=== PATIENT | male | born 1970 | race Caucasian/White ===

== ENCOUNTER 2021-05-15 08:03 | Outpatient (REF) | payer MEDICARE, SELFPAY ==
[2021-05-15 12:07] LABS: Alanine Aminotransferase 20 U/L (0-40); Albumin Level 4.4 g/dL (3.5-5.0); Alkaline Phosphatase 62 U/L (39-117); Anion Gap 14 (12-20); Aspartate Amino Transferase 22 U/L (5-37); Bilirubin Total 1.7 mg/dL (0.0-1.0); Blood Urea Nitrogen 18 mg/dL (9-16); Calcium 10.1 mg/dL (8.4-10.2); Carbon Dioxide 30 mmol/L (22-29); Chloride 103 mmol/L (96-108); Cholesterol 254 mg/dL; Estimated Glomerular Filt Rate > 60; Glucose Fasting 70 mg/dL (60-99); HDL Cholesterol 58 mg/dL; LDL Cholesterol Calculated 176 mg/dl; Potassium 3.6 mmol/L (3.3-5.1); Sodium 143 mmol/L (135-145); Triglycerides 104 mg/dL
[2021-05-15 12:29] LABS: Vitamin D 25-OH Total 13.8 ng/mL (>30)
== END 2021-05-15 08:04 | disposition home or self-care (01) ==
LOC: HO.HMGCLDS 08:03
PROVIDERS: PCP Internal Medicine; Visit Provider Internal Medicine
DX: Z00.01 Encounter for general adult medical examination with abnormal findings (principal); E78.5 Hyperlipidemia, unspecified; E55.9 Vitamin D deficiency, unspecified
CPT/HCPCS: 36415; 80053; 80061; 82306

== ENCOUNTER 2021-05-16 08:13 | Outpatient (REF) | payer MEDICARE, OTHER, SELFPAY ==
[2021-05-22 08:31] LABS: Levetiracetam Keppra 14.9 mcg/mL (12.0-46.0)
== END 2021-05-16 08:14 | disposition home or self-care (01) ==
LOC: HO.HMGCLDS 08:13
PROVIDERS: PCP Internal Medicine; Visit Provider Internal Medicine
DX: G40.909 Epilepsy, unspecified, not intractable, without status epilepticus (principal); Z79.899 Other long term (current) drug therapy
CPT/HCPCS: 36415; 80177

== ENCOUNTER 2022-02-26 06:08 | Outpatient (REF) | payer MEDICARE, OTHER, SELFPAY ==
[2022-02-26 12:27] LABS: Vitamin D 25-OH Total 30.7 ng/mL (>30)
[2022-02-26 12:29] LABS: Alanine Aminotransferase 18 U/L (0-40); Albumin Level 4.5 g/dL (3.5-5.0); Alkaline Phosphatase 68 U/L (39-117); Aspartate Amino Transferase 19 U/L (5-37); Bilirubin Direct 0.5 mg/dL (0.0-0.5); Bilirubin Total 1.7 mg/dL (0.0-1.0); Cholesterol 237 mg/dL; HDL Cholesterol 55 mg/dL; LDL Cholesterol Calculated 154 mg/dl; Total Protein 6.8 g/dL (6.5-8.0); Triglycerides 141 mg/dL
== END 2022-02-26 06:09 | disposition home or self-care (01) ==
LOC: HO.HMGCLDS 06:08
PROVIDERS: PCP Internal Medicine; Visit Provider Internal Medicine
DX: E55.9 Vitamin D deficiency, unspecified (principal); E78.5 Hyperlipidemia, unspecified; R17 Unspecified jaundice
CPT/HCPCS: 36415; 80061; 80076; 82306

== ENCOUNTER 2022-05-24 07:08 | Outpatient (REF) | payer MEDICARE, OTHER, SELFPAY ==
[2022-05-24 11:56] LABS: Alanine Aminotransferase 19 U/L (0-40); Albumin Level 4.1 g/dL (3.5-5.0); Alkaline Phosphatase 82 U/L (39-117); Anion Gap 11 (12-20); Aspartate Amino Transferase 17 U/L (5-37); Blood Urea Nitrogen 14 mg/dL (9-16); Calcium 9.3 mg/dL (8.4-10.2); Carbon Dioxide 32 mmol/L (22-29); Chloride 103 mmol/L (96-108); Estimated Glomerular Filt Rate > 60; Glucose Random 71 mg/dL (60-115); Lactate Dehydrogenase 184 U/L (118-273); Potassium 3.8 mmol/L (3.3-5.1); Sodium 142 mmol/L (135-145); Total Protein 6.4 g/dL (6.5-8.0)
[2022-05-28 16:19] LABS: Levetiracetam Keppra 18.2 mcg/mL (6.0-46.0)
== END 2022-05-24 07:09 | disposition home or self-care (01) ==
LOC: HO.HMGCLDS 07:08
PROVIDERS: Internal Medicine; Absent Provider Psychiatry & Neurology Neurology; PCP Internal Medicine; Visit Provider Nurse Practitioner Family
DX: C83.30 Diffuse large B-cell lymphoma, unspecified site (principal); G40.909 Epilepsy, unspecified, not intractable, without status epilepticus; Z79.899 Other long term (current) drug therapy
CPT/HCPCS: 36415; 80053; 80177; 83615

== ENCOUNTER 2023-03-14 08:22 | Outpatient (REF) | payer MEDICARE, OTHER, SELFPAY ==
[2023-03-14 11:25] LABS: MANUAL DIFF FLAG NO
[2023-03-14 12:03] LABS: Basophils Percent Auto 0.2 % (0-2); Eosinophils Absolute Auto 0.1 X10*3/uL (0.0-0.4); Eosinophils Percent Auto 1.7 % (0-4); Hematocrit 52.4 % (42.0-52.0); Hemoglobin 17.5 g/dl (14.0-18.0); Imm Gran Abs Auto 0.03 X10*3/uL (0.00-0.03); Imm Gran Pct Auto 0.4 % (0.0-0.4); Lymphocytes Absolute Auto 2.4 X10*3/uL (1.2-4.9); Mean Corpuscular HGB Conc 33.4 g/dl (31.0-36.0); Mean Corpuscular Hemoglobin 30.2 pg (27.0-33.0); Mean Corpuscular Volume 90.5 fL (80.0-98.0); Monocytes Absolute Auto 0.9 X10*3/uL (0.1-1.2); Monocytes Percent Auto 11.4 % (2-11); Neutrophils Absolute Auto 4.7 x10*3/uL (2.0-8.3); Neutrophils Percent Auto 57.3 % (45-73); Platelet Count 249 X10*3/uL (160-400); Red Blood Count 5.79 X10*6/uL (4.60-5.80); White Blood Count 8.2 X10*3/uL (4.8-10.8)
[2023-03-14 12:12] LABS: Alanine Aminotransferase 18 U/L (0-40); Albumin Level 4.3 g/dL (3.5-5.0); Alkaline Phosphatase 71 U/L (39-117); Anion Gap 15 (12-20); Aspartate Amino Transferase 19 U/L (5-37); Bilirubin Total 1.5 mg/dL (0.0-1.0); Blood Urea Nitrogen 10 mg/dL (9-16); Carbon Dioxide 28 mmol/L (22-29); Chloride 102 mmol/L (96-108); Cholesterol 253 mg/dL (<200); Estimated Glomerular Filt Rate > 60; Glucose Fasting 77 mg/dL (60-99); HDL Cholesterol 50 mg/dL (>40); LDL Cholesterol Calculated 162 mg/dL (<100); Potassium 3.6 mmol/L (3.3-5.1); Sodium 141 mmol/L (135-145); Total Protein 6.9 g/dL (6.5-8.0); Triglycerides 208 mg/dL (<150)
[2023-03-14 12:14] LABS: Vitamin D 25-OH Total 74.5 ng/mL (>30)
[2023-03-14 12:25] LABS: PSA,Total (Free>4and<10) 0.69 ng/mL (0.00-4.00)
== END 2023-03-14 08:23 | disposition home or self-care (01) ==
LOC: HO.HMGCLDS 08:22
PROVIDERS: PCP Internal Medicine; Visit Provider Internal Medicine
DX: G40.909 Epilepsy, unspecified, not intractable, without status epilepticus (principal); E55.9 Vitamin D deficiency, unspecified; E78.5 Hyperlipidemia, unspecified; Z85.72 Personal history of non-Hodgkin lymphomas; Z13.220 Encounter for screening for lipoid disorders; Z12.5 Encounter for screening for malignant neoplasm of prostate
CPT/HCPCS: 36415; 80053; 80061; 82306; 84153; 85025

== ENCOUNTER 2023-04-25 12:36 | Outpatient (AMB) | payer MEDICARE, MEDICAID, SELFPAY ==
--- NOTE | 2023-04-25 13:11 | A.OFFPC_ITS ---
Vital Signs 04/25/23 13:12 Height 5 ft 9 in Weight 205 lb BMI 30.3 BP 106/64 Blood Pressure Location Lt brachial Position Sitting Pulse 76 Pulse Source Pulse Oximeter Pulse Oximetry (%) 96 Oxygen Delivery Method Room Air Intake Visit Reasons: request referral for a 2nd opin. neuro Intake Note: Pt is here today for a follow up visit to discuss referral to Neuro 2nd opinion. Allergies silver Allergy (Unknown, Verified 04/25/23 13:20) Rash Penicillins [PENICILLINS] Adverse Reaction (Mild, Verified 04/25/23 13:20) DIARRHEA Medication List - Last Reconciled 04/25/23 by Tram Chi MD famotidine 40 mg PO DAILY levetiracetam 750 mg PO BID psyllium husk 0.4 grams PO DAILY Tobacco use date assessed: 04/25/23 Dental Screening Dental Screen Date: 04/25/23 Did you have a dental visit in the last 12 months?: Yes Did you have a dental problem in the last 6 months where you did not have access to dental care?: No Was dental information given to patient?: Patient has dentist HPI request referral for a 2nd opin. 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 Patient would like to stop his levetiracetam but states that his current neurologist is advising to for him to continue on it. [facility] Medical History (Updated 07/11/23 @ 09:11 by Tram Chi MD) Right hip pain History of diffuse large B-cell lymphoma Hearing impairment Seizure disorder Vitamin D deficiency Dyslipidemia B-cell lymphoma Onychomycosis of toenail Surgical History Hx of colonoscopy History of surgery Family History Father Skin cancer Mother Rheumatoid arthritis Dementia Mental health disorder Paternal Grandmother Dementia Paternal Grandfather Heart disease Brother No problems noted. Social History Housing: House Alcohol intake: never Patient Tobacco Use Status: Never used Tobacco e-Cigarette/Vaping Use: Never Used service: No Current occupational status: employed Cognitive needs: No Hearing needs: No Vision needs: Yes Questionnaire PHQ-9 Over the last 2 weeks, how often have you been bothered by any of the following problems? Depression Screening Interpretation: Negative Depression Screening Done: Yes Source: Developed by Drs. Adam Amaral, Lauren Melvin, Cameron Hein and colleagues, with an educational avila from [employer]. Thrive Questionnaire Date Thrive assessed: 05/31/22 AUDIT C Alcohol Use Questionnaire (AUDIT-C) 1. How often do you have a drink containing alcohol?: Never 3. How often do you have six or more drinks on one occasion?: Never Total Score: 0 LINDSEY-7 AMB Questionnaire LINDSEY-7 Date LINDSEY - 7 assessed: 05/31/22 Source: Developed by Drs. Adam Amaral, Lauren Melvin, Cameron Hein and colleagues, with an educational avila from [employer]. Review of Systems Const Denies body aches, Denies fever(s) and Denies headache(s) ENT Denies dizziness, Denies headache(s) and Denies nasal congestion Card Denies chest pain, Denies lightheadedness and Denies dyspnea Resp Denies chest congestion, Denies cough and Denies dyspnea GI Denies abdominal pain and Denies change in bowel habits Reports no additional complaints Musc Denies back pain, Denies myalgias, Denies arthralgias, Denies joint swelling, Denies muscle cramps and Denies muscle weakness Neuro Denies dizziness, Denies headache(s) and Denies convulsions Psych Reports no additional complaints Endo Reports no additional complaints Physical exam (Primary Care) Vital Signs: Last Vital Signs Pulse 76 04/25/23 13:12 BP 106/64 04/25/23 13:12 Pulse Ox 96 04/25/23 13:12 Oxygen Delivery Method Room Air 04/25/23 13:12 BMI result Body Mass Index 30.3 Tobacco/Smoking Status: Tobacco use Status Tobacco use date assessed 04/25/23 04/25/23 13:15 Patient Tobacco Use Status Never used Tobacco 04/25/23 13:15 e-Cigarette/Vaping Use Never Used 04/25/23 13:15 Depression Screening Interpretation: Negative Thrive Assessment: Date of Thrive Assessment Date Thrive assessed 05/31/22 04/25/23 13:15 Const Other: Alert oriented x 3, no acute cardiorespiratory distress noted, ambulatory normal gait General: comfortable, no acute distress and alert Orientation/consciousness: patient oriented x3 HENMA Other: Impacted cerumen noted in right ear canal, slight dry flakes noted in left ear canal with tympanic membrane intact Ears: external ears normal General nose exam: Normal external nose present Mouth: Normal oral and palatal mucosa present, oropharynx normal and moist mucous membranes Eyes General: appearance normal, both eyes and all related structures Neck Neck: Yes full ROM, Yes no lymphadenopathy and Yes supple Resp Effort & Inspection: normal respiratory effort and able to speak in complete sentences Auscultation: clear to auscultation bilaterally Cardio Rate: regular rate Rhythm: regular rhythm Heart sounds: S1 normal heart sound present and S2 normal heart sound present GI Palpation (GI): Soft to palpation, nontender and no masses Auscultation: normal bowel sounds Back/Spine/Pelvis Back: No back tenderness Skin General skin exam: no rashes or lesions noted Neuro General: patient oriented x3, gait normal, tone normal, moves all extremities, Normal light touch and pain sensation and no focal motor deficits Cranial nerves: Yes CN's II-XII intact bilaterally Cognition (Neuro): normal cognition Extrem General: Yes full ROM, Yes no joint enlargement, Yes no clubbing, cyanosis or edema and Yes no calf tenderness Psych Appearance: grossly normal and well kempt Mental Status: mental status grossly normal Speech and movement: Normal speech and movement present Affect: normal affect Attitude: cooperative Thought process: Normal thought process present Thought content: Normal thought content present Assessment and Plan Assessment & Plan (1) Seizure disorder: Code(s): G40.909 - Epilepsy, unspecified, not intractable, without status epilepticus Plan: Currently on levetiracetam, requesting a referral to another neurologist for 2nd opinion. (2) Dyslipidemia: Code(s): E78.5 - Hyperlipidemia, unspecified Plan: Ordered fasting lipid panel and liver enzyme (3) History of diffuse large B-cell lymphoma: Code(s): Z85.72 - Personal history of non-Hodgkin lymphomas Plan: No recurrences. Orders: Orders Complete Blood Count Auto Diff 04/25/23 G40.909 - Epilepsy, unspecified, not intractable, without status epilepticus, E78.5 - Hyperlipidemia, unspecified, Z85.72 - Personal history of non-Hodgkin lymphomas, E55.9 - Vitamin D deficiency, unspecified Alanine Aminotransferase 04/25/23 G40.909 - Epilepsy, unspecified, not intractable, without status epilepticus, E78.5 - Hyperlipidemia, unspecified, Z85.72 - Personal history of non-Hodgkin lymphomas, E55.9 - Vitamin D deficiency, unspecified Glucose Fasting 04/25/23 G40.909 - Epilepsy, unspecified, not intractable, without status epilepticus, E78.5 - Hyperlipidemia, unspecified, Z85.72 - Personal history of non-Hodgkin lymphomas, E55.9 - Vitamin D deficiency, unspecified Lipid Panel 04/25/23 G40.909 - Epilepsy, unspecified, not intractable, without status epilepticus, E78.5 - Hyperlipidemia, unspecified, Z85.72 - Personal history of non-Hodgkin lymphomas, E55.9 - Vitamin D deficiency, unspecified Aspartate Amino Transferase 04/25/23 G40.909 - Epilepsy, unspecified, not intractable, without status epilepticus, E78.5 - Hyperlipidemia, unspecified, Z85.72 - Personal history of non-Hodgkin lymphomas, E55.9 - Vitamin D deficiency, unspecified Coding Level of Care Code Est Pt Level 4 (07077) Diagnoses Seizure disorder G40.909 Dyslipidemia E78.5 History of diffuse large B-cell lymphoma Z85.72
[2023-04-25 13:12] VITALS: BP 106/64; PULSE 76; O2SAT 96; BMI 30.3
== END 2023-04-25 14:12 | disposition home or self-care (01) ==
PROVIDERS: PCP Internal Medicine; Visit Provider Internal Medicine
DX: G40.909 Epilepsy, unspecified, not intractable, without status epilepticus (principal); E78.5 Hyperlipidemia, unspecified; Z85.72 Personal history of non-Hodgkin lymphomas
CPT/HCPCS: 99214

== ENCOUNTER 2023-07-10 06:10 | Outpatient (REF) | payer MEDICARE, OTHER, SELFPAY ==
[2023-07-10 11:31] LABS: MANUAL DIFF FLAG NO
[2023-07-10 11:43] LABS: Basophils Percent Auto 0.6 % (0-2); Eosinophils Absolute Auto 0.1 X10*3/uL (0.0-0.4); Eosinophils Percent Auto 2.1 % (0-4); Hematocrit 53.3 % (42.0-52.0); Hemoglobin 17.7 g/dl (14.0-18.0); Imm Gran Abs Auto 0.02 X10*3/uL (0.00-0.03); Imm Gran Pct Auto 0.3 % (0.0-0.4); Lymphocytes Absolute Auto 3.2 X10*3/uL (1.2-4.9); Lymphocytes Percent Auto 47.4 % (20-40); Mean Corpuscular HGB Conc 33.2 g/dl (31.0-36.0); Mean Corpuscular Hemoglobin 30.2 pg (27.0-33.0); Monocytes Absolute Auto 0.8 X10*3/uL (0.1-1.2); Monocytes Percent Auto 11.3 % (2-11); Neutrophils Absolute Auto 2.6 x10*3/uL (2.0-8.3); Neutrophils Percent Auto 38.3 % (45-73); Platelet Count 260 X10*3/uL (160-400); Red Blood Count 5.86 X10*6/uL (4.60-5.80); Red Cell Distribution Width 13.2 % (11.0-16.0); White Blood Count 6.7 X10*3/uL (4.8-10.8)
[2023-07-10 11:52] LABS: Alanine Aminotransferase 24 U/L (0-40); Aspartate Amino Transferase 20 U/L (5-37); Cholesterol 262 mg/dL (<200); Glucose Fasting 79 mg/dL (60-99); HDL Cholesterol 57 mg/dL (>40); LDL Cholesterol Calculated 176 mg/dL (<100); Triglycerides 148 mg/dL (<150)
== END 2023-07-10 06:11 | disposition home or self-care (01) ==
LOC: HO.HMGCLDS 06:10
PROVIDERS: PCP Internal Medicine; Visit Provider Internal Medicine
DX: G40.909 Epilepsy, unspecified, not intractable, without status epilepticus (principal); E78.5 Hyperlipidemia, unspecified; E55.9 Vitamin D deficiency, unspecified; Z85.72 Personal history of non-Hodgkin lymphomas
CPT/HCPCS: 36415; 80061; 82947; 84450; 84460; 85025

== ENCOUNTER 2023-07-11 07:49 | Outpatient (AMB) | payer MEDICARE, MEDICAID, SELFPAY ==
--- NOTE | 2023-07-11 08:07 | A.OFFVIS_ITS ---
Intake Vital Signs 07/11/23 08:09 Height 5 ft 9 in Weight 210 lb BMI 31.0 BP 120/82 Blood Pressure Location Rt brachial Position Sitting Pulse 62 Pulse Source Pulse Oximeter Pulse Oximetry (%) 93 Oxygen Delivery Method Room Air Intake Visit Reasons: AWV Intake Note: Pt is here today for his AWV: Last colonoscopy 03/17/18 Allergies silver Allergy (Unknown, Verified 04/25/23 13:20) Rash Penicillins [PENICILLINS] Adverse Reaction (Mild, Verified 04/25/23 13:20) DIARRHEA Medication List - Last Reconciled 07/11/23 by Tram Chi MD famotidine 40 mg PO DAILY levetiracetam 750 mg PO BID psyllium husk 0.4 grams PO DAILY HPI AWV HPI Details SWV ? 52 year old male with history of seizure disorder, dyslipidemia, diffuse large B-cell lymphoma, hearing impairment, and onychomycosis of toenails, presents to today for his subsequent? Annual Wellness Visit.? He had a screening colonoscopy done by Dr. Ralph in 03/17/2018 which came back with normal findings. He is also up-to-date with his fasting blood sugar check and fasting lipids , the latter of which came back with elevated LDL cholesterol. He is up-to-date with his yearly flu shot, COVID vaccinations, rpneumonia vaccination and Tdap, but needs his shingles vaccination .? Medical / Social History Reviewed? Past Medical History ?Yes . ? Hughes of Care / Care Team list updated ?Yes . ? Surgical/Hospitalization History ?Yes . ? Current Medications (including OTC and supplements) ?Yes . ? Family History ?Yes . ? Tobacco Control form ?Yes . ? AUDIT-C (Alcohol use) form ?Yes . ? Illicit drug use in Social History ?Yes . ? Current diagnosis of depression? ?No ? Appropriate PHQ2/PHQ9 completed ?Yes . ? Data entered by ?Merchandising Team Lead and reviewed by provider ? Fall Risk ? Fall History? Have you had any falls with injury in the past year? ?No . ? Have you had two or more falls in the past year? ?No . ? Fall Risk Assessment: ?No falls in the past year . ? HRA filled out by the patient, reviewed by Provider and scanned. ? IPPE/AWV ? Balance? Romberg ?Yes . ? Tandem walk ?Yes . ? Walk and Turn ?Yes . ? Rise from sit to stand ?Yes . ?Vision? Corrective lens ?Yes ? Vision screen ?Hearing? Whisper test ?pass . ?Written Plan?Completed. See Patient Documents.? HPI Comments History of Present Illness Details 52-year-old male with history of diffuse B-cell lymphoma status post chemotherapy and stem cell mobilization, history of seizure disorder which started when he was diagnosed with lymphoma, has not had any seizure episodes since then, currently still on levetiracetam followed by Dr. Pavon at [facility]. He is seeking a 2nd opinion with [facility] Neuro[facility]On[facility] Department has an appointment next month to see if we can stop his seizure medication. He is still being seen by Dr. Lynne , his oncologist for follow-up yearly. Has been having intermittent episodes of pain in his right hip joint, usually with walking long distances, no history of any trauma, would like a referral for physical therapy . Recent labs showed marked elevation in his LDL cholesterol higher than last check. Patient denies any regular exercise. He would admits to having a very bad diet consisting mainly of less Jennifer, meat pies, pizza [facility] Medical History (Updated 07/11/23 @ 09:11 by Tram Chi MD) Right hip pain History of diffuse large B-cell lymphoma Hearing impairment Seizure disorder Vitamin D deficiency Dyslipidemia B-cell lymphoma Onychomycosis of toenail Surgical History Hx of colonoscopy History of surgery Family History Father Skin cancer Mother Rheumatoid arthritis Dementia Mental health disorder Paternal Grandmother Dementia Paternal Grandfather Heart disease Brother No problems noted. Social History Housing: House Alcohol intake: never Patient Tobacco Use Status: Never used Tobacco e-Cigarette/Vaping Use: Never Used service: No Current occupational status: employed Cognitive needs: No Hearing needs: No Vision needs: Yes Questionnaire Medicare Wellness Checkup What gender do you identify with?: male During the past 4 weeks, how much have you been bothered by emotional problems such as feeling anxious, depressed, irritable, sad or downhearted, and blue?: slightly During the past 4 weeks, has your physical & emotional health limited your social activities with family, friends, neighbors, or groups?: not at all During the past 4 weeks, how much bodily pain have you generally had?: very mild pain During the past 4 weeks, was someone available to help you if you needed & wanted help?: yes, some During the past 4 weeks, what was the hardest physical activity you could do for at least 2 minutes?: very heavy Can you get to places out of walking distance without help? (For eg., can you travel alone on buses, taxis or drive your car?): Yes Can you go shopping for groceries or clothes without someone's help?: Yes Can you prepare your own meals?: Yes Can you do your housework without help?: Yes Because of any health problems, do you need the help of another person with your personal care needs such as eating, bathing, dressing or getting around the house?: No During the past 4 weeks, how would you rate your health in general?: very good During the past 4 weeks how have things been going for you?: pretty well Are you having difficulties driving your car?: no Do you always fasten your seat belt when you are in a car?: yes, usually During past 4 weeks, have you been bothered by the following: never: Falling or dizzy when standing up, Trouble eating well?, Problems using the telephone? and Tiredness or fatigue?, seldom: Teeth or denture problems? and often: Sexual problems? Have you fallen 2 or more times in the past year?: No Are you a smoker?: no During the past 4 weeks, how many drinks of wine, beer, or other alcoholic beverages did you have?: no alcohol at all Do you exercise for about 20 minutes 3 or more times a week?: yes, most of the time Have you been given information to help with the following?: no: Hazards in your house that might hurt you? and no: Keeping track of your medications? How often do you have trouble taking medicines the way you have been told to take them?: sometimes I take medicine as prescribed How confident are you that you can control & manage most of your health problems?: somewhat confident What is your race?: White Mini Mental State Exam (MMSE) Orientation What is the (year) (season) (date) (day) (month)?: year (2023), season (Winter), date (07/11/2023), day (Friday) and month (June) Where are we (state) (county) (town or city) (hospital) (floor)?: state ([place]), county ([place]), town or city ([place]) and hospital/clinic ([facility]) Score Score: 9 Activity of Daily Living Bathing - sponge bath, tub bath or shower: receives no assistance (gets in/out by self, if usual bathing means Dressing - getting clothes from closets & drawers, including inner/outer garments & fasteners.: gets clothes & gets completely dressed without help Toileting - going to the 'toilet room' for urine/bowel elimination & cleaning self/arranging clothes: goes to toilet room, cleans self, arranges clothes without help Transfer: moves in & out of bed and chair without help (may use support object) Continence: controls urination/bowel movements completely by self Feeding: feeds self without help Total Score: 0 Information obtained from: patient Using telephone: independent Traveling: independent Shopping: independent Preparing meals: independent Housework: independent Taking medicine: independent Managing money: independent PHQ-9 Over the last 2 weeks, how often have you been bothered by any of the following problems? 1. Little interest or pleasure in doing things: not at all 2. Feeling down, depressed, or hopeless: not at all 3. Trouble falling or staying asleep, or sleeping too much: several days 4. Feeling tired or having little energy: not at all 5. Poor appetite or overeating: several days 6. Feeling bad about yourself - or that you are a failure or have let yourself or your family down: not at all 7. Trouble concentrating on things, such as reading the newspaper or watching television: not at all 8. Moving or speaking so slowly that other people could have noticed. Or the opposite - being so fidgety or restless that you have been moving around a lot more than usual: not at all 9. Thoughts that you would be better off or of hurting yourself in some way: not at all Total score: 2 Source: Developed by Drs. Adam Amaral, Lauren Melvin, Cameron Hein and colleagues, with an educational avila from [employer]. Thrive Questionnaire Date Thrive assessed: 07/11/23 I am a: Patient What is your living situation today?: I have a steady place to live Within the past 12 months, did the food you bought not last and you didn't have the money to get more?: Never true Within the past 12 months, did you worry whether your food would run out before you got money to buy more?: Never true Do you have trouble paying for medicines?: No Do you have trouble getting transportation to medical appointments?: No Do you have trouble paying your heating and electricity bill?: No Do you have trouble taking care of your child, family member or friend?: No Do you have trouble with day-to-day activities such as bathing, preparing meals, shopping, managing finances, etc.?: No Are you currently unemployed and looking for a job?: No Are you interested in more education?: No Please select the resources that you would like help with: None THRIVE Score: 0 LINDSEY-7 AMB Questionnaire LINDSEY-7 Date LINDSEY - 7 assessed: 07/11/23 Feeling nervous, anxious, or on edge: 1 = Several days Not being able to stop or control worryin = Not at all Worrying too much about different things: 1 = Several days Trouble relaxin = Not at all Being so restless that it is hard to sit still: 0 = Not at all Becoming easily annoyed or irritable: 0 = Not at all Feeling afraid as if something awful might happen: 0 = Not at all Total LINDSEY-7 score (0-4 normal; 5-9 mild; 10-14 moderate; 15-21 severe): 2 Source: Developed by Drs. Adam Amaral, Lauren Melvin, Cameron Hein and colleagues, with an educational avila from [employer]. Review of Systems Const All systems reviewed & are unremarkable except as noted in HPI and below Physical Exam Vital Signs: Last Vital Signs Pulse 62 07/11/23 08:09 BP 120/82 07/11/23 08:09 Pulse Ox 93 07/11/23 08:09 Oxygen Delivery Method Room Air 07/11/23 08:09 BMI result Body Mass Index 31.0 Const General: cooperative, comfortable and no acute distress Nutritional Appearance: obese Orientation/consciousness: patient oriented x3 HEENT Ears: external ears normal, TM's normal bilaterally and EAC's normal General nose exam: Normal external nose present and Normal nasal mucous membranes and turbinates present Mouth: Normal oral and palatal mucosa present, oropharynx normal and moist mucous membranes Eyes General: appearance normal, both eyes and all related structures Neck Neck: Yes full ROM, Yes no lymphadenopathy and Yes supple Resp Effort & Inspection: normal respiratory effort and able to speak in complete sentences Auscultation: clear to auscultation bilaterally Cardio Rate: regular rate Rhythm: regular rhythm Heart sounds: S1 normal heart sound present and S2 normal heart sound present Neuro General: patient oriented x3, gait normal, tone normal, moves all extremities, Normal light touch and pain sensation and no focal motor deficits Cognition (Neuro): normal cognition Gait exam (Neuro): Normal gait present Motor exam (neuro): 5/5 motor strength present throughout Extrem General: Yes full ROM, Yes no joint enlargement, Yes no clubbing, cyanosis or edema, Yes no pedal edema, Yes no calf tenderness and Yes normal gait Results Reviewed Results Reviewed: ENTERED: 07/10/23 [facility] DR: ORDERED: CBC Auto Diff Test Result Flag Reference WBC 6.7 4.8-10.8 X10*3/uL RBC 5.86 H 4.60-5.80 X10*6/uL HGB 17.7 14.0-18.0 g/dl HCT 53.3 H 42.0-52.0 % MCV 91.0 80.0-98.0 fL MCH 30.2 27.0-33.0 pg MCHC 33.2 31.0-36.0 g/dl RDW 13.2 11.0-16.0 % PLT 260 160-400 X10*3/uL MPV 10.0 9.4-12.4 fL Neut Pct Auto 38.3 L 45-73 % ImGran Pct Auto 0.3 0.0-0.4 % Lymp Pct Auto 47.4 H 20-40 % [place] Pct Auto 11.3 H 2-11 % Eos Pct Auto 2.1 0-4 % Baso Pct Auto 0.6 0-2 % NRBC Pct Auto 0.0 0.0-0.2 /100WBC ANC Neut Abs # 2.6 2.0-8.3 x10*3/uL ImGran Abs Auto 0.02 0.00-0.03 X10*3/uL Lymph Abs Auto 3.2 1.2-4.9 X10*3/uL [place] Abs Auto 0.8 0.1-1.2 X10*3/uL Eos Abs Auto 0.1 0.0-0.4 X10*3/uL Baso Abs Auto 0.0 0.0-0.2 X10*3/uL NRBC Abs Auto 0.000 0.0-0.012 X10*3/uL RUN: 07/11/23 0815 PAGE 1 [facility] [address] [place] [id number] Offset Label Rewinder: Chris Benitez M.D. Specimen Inquiry Name: Rony Guidry Age/Sex: 52/M : 1970 Unit#: [id number] Attend Dr: Tram Chi MD Re07/10/23 Status: DEP [facility]F [facility]: SPEC : [id number] BRISEYDA: 07/10/23 STATUS: COMP REQ : [id number] RECD: 07/10/23-[address]: Tram Chi MD COMP: 07/10/23 ENTERED: 07/10/[address]: ORDERED: Glu Fasting, AST, ALT, Lipid Panel Test Result Flag Reference FBS 79 60-99 mg/dL AST (GOT) 20 5-37 U/L ALT (GPT) 24 0-40 U/L Triglyceride 148 <150 mg/dL Desirable Triglyceride: less than 150 mg/dL Borderline High Triglyceride 150-199 mg/dL High Triglyceride: 200-499 mg/dL Very High Triglyceride: greater than or equal to 5OO mg/dL Cholesterol 262 H <200 mg/dL Desirable Cholesterol: less than 200 mg/dL Borderline High Cholesterol: 200-239 mg/dL High Cholesterol: greater than 239 mg/dL LDL Calculated 176 H <100 mg/dL Desirable LDL: less than 100 mg/dL Near Optimal/Above Optimal LDL: 110-129 mg/dL Borderline High LDL: 130-159 mg/dL High LDL: 160-189 mg/dL Very High LDL: greater than or equal to 190 mg/dL HDL 57 >40 mg/dL Desirable HDL: greater than 40 mg/dL Note: This HDL assay may give artificially low results in patients with liver disease. Assessment & Plan Assessment & Plan (1) Dyslipidemia: Code(s): E78.5 - Hyperlipidemia, unspecified Plan: Reinforced importance of following a low-cholesterol diet and getting regular exercise at least 15 minutes of cardio daily. Referred to our dietitian, for dietary guidance. Follow-up in 6 months for recheck on his lipids (2) Seizure disorder: Code(s): G40.909 - Epilepsy, unspecified, not intractable, without status epilepticus Plan: Currently being seen by Dr. Rony Pavon at [facility], and has an appointment with [facility]Oncology next month for 2nd opinion, wants to see if still needs to be taking levetiracetam, last seizure episode was several years ago when he had his initial cancer diagnosed (3) Encounter for initial annual wellness visit (AWV) in Medicare patient: Code(s): Z00.00 - Encounter for general adult medical examination without abnormal findings Plan: Medical wellness checklist discussed with patient, reviewed and updated. Copy given. (4) History of diffuse large B-cell lymphoma: Comment: Status post R-HiDAC chemotherapy followed by subsequent high-dose G-CSF autologous stem cell mobilization in 2016 Code(s): Z85.72 - Personal history of non-Hodgkin lymphomas Plan: Currently followed yearly by at [facility] (5) Right hip pain: Code(s): M25.551 - Pain in right hip Plan: Referred for physical therapy Orders: Orders PT Evaluation and Treatment Today M25.551 - Pain in right hip Aspartate Amino Transferase 11/24/23 E78.5 - Hyperlipidemia, unspecified Lipid Panel 11/24/23 E78.5 - Hyperlipidemia, unspecified Alanine Aminotransferase 11/24/23 E78.5 - Hyperlipidemia, unspecified Quality Reporting (2019) Depression/Bipolar (159/160/161/177) PHQ-9: Total score: 2 Coding Level of Care Code Medicare Subsequent (G0439) Est Pt Level 3 (95968) Diagnoses Dyslipidemia E78.5 Seizure disorder G40.909 Encounter for initial annual wellness visit (AWV) in Medicare patient Z00.00 History of diffuse large B-cell lymphoma Z85.72 Right hip pain M25.551 CPT Codes Advance Care Planning - Time spent: 1-15 minutes, on File ([id number]) Advance Care Planning Date of discussion: 07/11/23 Who was present: Patient Forms completed: Health Care Proxy and MOLST Time spent: 1-15 minutes, on File Actual minutes spent: 15
[2023-07-11 08:09] VITALS: BP 120/82; PULSE 62; O2SAT 93; BMI 31.0
== END 2023-07-11 09:20 | disposition home or self-care (01) ==
PROVIDERS: PCP Internal Medicine; Visit Provider Internal Medicine
DX: Z00.00 Encounter for general adult medical examination without abnormal findings (principal); E78.5 Hyperlipidemia, unspecified; G40.909 Epilepsy, unspecified, not intractable, without status epilepticus; M25.551 Pain in right hip; Z85.72 Personal history of non-Hodgkin lymphomas
CPT/HCPCS: 1123F; 99213; G0439

== ENCOUNTER 2023-09-16 14:00 | Outpatient (RCR) | payer MEDICARE, MEDICAID, SELFPAY | END 2023-10-13 08:13 | disposition home or self-care (01) | LOC: HO.PT 14:00 | PROVIDERS: PCP Internal Medicine; Visit Provider Internal Medicine | DX: M25.551 Pain in right hip (principal) | CPT/HCPCS: 97110; 97140; 97161; 97535 ==

== ENCOUNTER 2023-12-22 07:23 | Outpatient (REF) | payer MEDICARE, MEDICAID, SELFPAY ==
[2023-12-22 10:40] LABS: Alanine Aminotransferase 22 U/L (0-40); Aspartate Amino Transferase 21 U/L (5-37); Cholesterol 193 mg/dL (<200); HDL Cholesterol 49 mg/dL (>40); LDL Cholesterol Calculated 118 mg/dL (<100); Triglycerides 134 mg/dL (<150)
== END 2023-12-22 07:24 | disposition home or self-care (01) ==
LOC: HO.HMGCLDS 07:23
PROVIDERS: PCP Internal Medicine; Visit Provider Internal Medicine
DX: E78.5 Hyperlipidemia, unspecified (principal)
CPT/HCPCS: 36415; 80061; 84450; 84460

== ENCOUNTER 2023-12-24 10:19 | Outpatient (AMB) | payer MEDICARE, MEDICAID, SELFPAY ==
[2023-12-24 10:44] VITALS: BP 110/80; PULSE 62; O2SAT 95; BMI 30.9
--- NOTE | 2023-12-24 10:44 | MHC.PC.OV ---
Vital Signs 12/24/23 10:44 Height 5 ft 9 in Weight 209 lb BMI 30.9 BP 110/80 Blood Pressure Location Lt brachial Position Sitting Pulse 62 Pulse Source Pulse Oximeter Pulse Oximetry (%) 95 Oxygen Delivery Method Room Air Intake Visit Reasons: 6 month follow up Intake Note: Pt is here today for his 6 mo. f/u Allergies silver Allergy (Unknown, Verified 12/24/23 11:03) Rash Penicillins [PENICILLINS] Adverse Reaction (Mild, Verified 12/24/23 11:03) DIARRHEA Medication List - Last Reconciled 12/24/23 by Tram Chi MD atorvastatin 20 mg PO DAILY cholecalciferol (vitamin D3) 25 mcg PO DAILY famotidine 40 mg PO DAILY hydrocortisone 2.5% (Proctosol HC) 1 appl IN BID-QID PRN psyllium husk 0.4 grams PO DAILY Tobacco use date assessed: 12/24/23 Dental Screening Dental Screen Date: 12/24/23 Did you have a dental visit in the last 12 months?: Yes Did you have a dental problem in the last 6 months where you did not have access to dental care?: Yes Was dental information given to patient?: Patient has dentist HPI 6 month follow up HPI Details 53-year-old male with dyslipidemia, here today for his follow-up. He is currently on atorvastatin 10 mg once a day which she has been taking as directed. Compliant with his diet and tries to get regular exercise. Recent fasting labs done showed marked improvement in his LDL cholesterol , now within normal limits [facility] Medical History (Updated 12/24/23 @ 11:23 by Tram Chi MD) History of seizure disorder Right hip pain History of diffuse large B-cell lymphoma Hearing impairment Vitamin D deficiency Dyslipidemia B-cell lymphoma Onychomycosis of toenail Surgical History Hx of colonoscopy History of surgery Family History Father Skin cancer Mother Rheumatoid arthritis Dementia Mental health disorder Paternal Grandmother Dementia Paternal Grandfather Heart disease Brother No problems noted. Social History Housing: House Alcohol intake: never Patient Tobacco Use Status: Never used Tobacco e-Cigarette/Vaping Use: Never Used service: No Current occupational status: employed Cognitive needs: No Hearing needs: No Vision needs: Yes Questionnaire PHQ-9 Over the last 2 weeks, how often have you been bothered by any of the following problems? 1. Little interest or pleasure in doing things: not at all 2. Feeling down, depressed, or hopeless: not at all 3. Trouble falling or staying asleep, or sleeping too much: several days 4. Feeling tired or having little energy: not at all 5. Poor appetite or overeating: not at all 6. Feeling bad about yourself - or that you are a failure or have let yourself or your family down: not at all 7. Trouble concentrating on things, such as reading the newspaper or watching television: not at all 8. Moving or speaking so slowly that other people could have noticed. Or the opposite - being so fidgety or restless that you have been moving around a lot more than usual: not at all 9. Thoughts that you would be better off or of hurting yourself in some way: not at all Total score: 1 Depression Screening Interpretation: Negative Depression Screening Done: Yes 65989 - PHQ-9 Billing: Yes Source: Developed by Drs. Adam Amaral, Lauren Melvin, Cameron Hein and colleagues, with an educational avila from [employer]. Thrive Questionnaire Date Thrive assessed: 12/24/23 I am a: Patient What is your living situation today?: I have a steady place to live Within the past 12 months, did the food you bought not last and you didn't have the money to get more?: Never true Within the past 12 months, did you worry whether your food would run out before you got money to buy more?: Never true Do you have trouble paying for medicines?: No Do you have trouble getting transportation to medical appointments?: No Do you have trouble paying your heating and electricity bill?: No Do you have trouble taking care of your child, family member or friend?: No Do you have trouble with day-to-day activities such as bathing, preparing meals, shopping, managing finances, etc.?: No Are you currently unemployed and looking for a job?: Yes Are you interested in more education?: No Please select the resources that you would like help with: Housing/Snf Currently or been in a relationship where the following occur: No concerns reported THRIVE Score: 0 AUDIT C Alcohol Use Questionnaire (AUDIT-C) 1. How often do you have a drink containing alcohol?: Monthly or less 2. How many drinks containing alcohol do you have on a typical day when you are drinking?: 1 or 2 3. How often do you have six or more drinks on one occasion?: Never Total Score: 1 LINDSEY-7 AMB Questionnaire LINDSEY-7 Date LINDSEY - 7 assessed: 12/24/23 Feeling nervous, anxious, or on edge: 0 = Not at all Not being able to stop or control worryin = Not at all Worrying too much about different things: 0 = Not at all Trouble relaxin = Not at all Being so restless that it is hard to sit still: 0 = Not at all Becoming easily annoyed or irritable: 0 = Not at all Feeling afraid as if something awful might happen: 0 = Not at all Total LINDSEY-7 score (0-4 normal; 5-9 mild; 10-14 moderate; 15-21 severe): 0 Source: Developed by Drs. Adam Amaral, Lauren Melvin, Cameron Hein and colleagues, with an educational avila from [employer]. LINDSEY-7 Assessment Billing LINDSEY-7 Assessment Tool: LINDSEY-7 Assessment 87353 Review of Systems Const Denies body aches, Denies fever(s) and Denies headache(s) ENT Denies dizziness, Denies headache(s) and Denies nasal congestion Card Denies chest pain, Denies lightheadedness and Denies dyspnea Resp Denies chest congestion, Denies cough and Denies dyspnea GI Denies abdominal pain and Denies change in bowel habits Reports no additional complaints Musc Denies back pain, Denies myalgias, Denies arthralgias, Denies joint swelling, Denies muscle cramps and Denies muscle weakness Neuro Denies dizziness, Denies headache(s) and Denies convulsions Psych Reports no additional complaints Endo Reports no additional complaints Artem/Lymph Reports no additional complaints Physical exam (Primary Care) Vital Signs: Last Vital Signs Pulse 62 12/24/23 10:44 BP 110/80 12/24/23 10:44 Pulse Ox 95 12/24/23 10:44 Oxygen Delivery Method Room Air 12/24/23 10:44 BMI result Body Mass Index 30.9 Tobacco/Smoking Status: Tobacco use Status Tobacco use date assessed 12/24/23 12/24/23 10:49 Patient Tobacco Use Status Never used Tobacco 12/24/23 10:49 e-Cigarette/Vaping Use Never Used 12/24/23 10:49 PHQ-9: PHQ-9 Score PHQ-9: Total score 1 12/24/23 11:07 Depression Screening Interpretation: Negative Thrive Assessment: Date of Thrive Assessment Date Thrive assessed 12/24/23 12/24/23 10:49 Currently or been in a relationship where the following occur: No concerns reported Const Other: Alert oriented x 3, no acute cardiorespiratory distress noted, ambulatory normal gait General: comfortable, no acute distress and alert Orientation/consciousness: patient oriented x3 HENMT Ears: external ears normal General nose exam: Normal external nose present Mouth: Normal oral and palatal mucosa present, oropharynx normal and moist mucous membranes Eyes General: appearance normal, both eyes and all related structures Neck Neck: Yes full ROM, Yes no lymphadenopathy and Yes supple Resp Effort & Inspection: normal respiratory effort and able to speak in complete sentences Auscultation: clear to auscultation bilaterally Cardio Rate: regular rate Rhythm: regular rhythm Heart sounds: S1 normal heart sound present and S2 normal heart sound present GI Palpation (GI): Soft to palpation, nontender and no masses Auscultation: normal bowel sounds Skin General skin exam: no rashes or lesions noted Neuro General: patient oriented x3, gait normal, tone normal, moves all extremities, Normal light touch and pain sensation and no focal motor deficits Cranial nerves: Yes CN's II-XII intact bilaterally Cognition (Neuro): normal cognition Extrem General: Yes full ROM, Yes no joint enlargement, Yes no clubbing, cyanosis or edema and Yes no calf tenderness Results Reviewed Results Reviewed: Name: Rony Guidry Age/Sex: 53/M : 1970 Unit#: [id number] Attend Dr: Tram Chi MD Re12/22/23 Status: DEP REF Location: [facility] Disch: SPEC : [id number] BRISEYDA: 12/22/23 STATUS: COMP REQ : [id number] RECD: 12/22/[address] [facility] [address]: Tram Chi MD COMP: 12/22/23 ENTERED: 12/22/23 [facility] DR: ORDERED: AST, ALT, Lipid Panel Test Result Flag Reference AST (GOT) 21 5-37 U/L ALT (GPT) 22 0-40 U/L Triglyceride 134 <150 mg/dL Desirable Triglyceride: less than 150 mg/dL Borderline High Triglyceride 150-199 mg/dL High Triglyceride: 200-499 mg/dL Very High Triglyceride: greater than or equal to 5OO mg/dL Cholesterol 193 <200 mg/dL Desirable Cholesterol: less than 200 mg/dL Borderline High Cholesterol: 200-239 mg/dL High Cholesterol: greater than 239 mg/dL LDL Calculated 118 H <100 mg/dL Desirable LDL: less than 100 mg/dL Near Optimal/Above Optimal LDL: 110-129 mg/dL Borderline High LDL: 130-159 mg/dL High LDL: 160-189 mg/dL Very High LDL: greater than or equal to 190 mg/dL HDL 49 >40 mg/dL Desirable HDL: greater than 40 mg/dL Note: This HDL assay may give artificially low results in patients with liver disease. Assessment and Plan Assessment & Plan (1) Dyslipidemia: Code(s): E78.5 - Hyperlipidemia, unspecified Plan: Reviewed recent fasting lipid profile with patient with marked improvement in his cholesterol, LDL cholesterol and triglycerides . Continue with atorvastatin, increased dose to 20 mg daily , in addition to adherence to low-cholesterol diet and regular exercise, at least 30 minutes 3 to 4 times a week. Advised patient to make healthy food choices, eat more fruits, vegetables, whole grains, wild caught fish and low-fat dairy. Limit amount of meat and fried or fatty food products, as well as processed foods and fast foods. Follow-up scheduled with repeat fasting lipid panel in 5 months. (2) History of diffuse large B-cell lymphoma: Comment: Status post R-HiDAC chemotherapy followed by subsequent high-dose G-CSF autologous stem cell mobilization in 2016 Code(s): Z85.72 - Personal history of non-Hodgkin lymphomas Plan: Currently followed by oncologist at [facility] that goes to [facility], requested copy of latest office visit Medications: New atorvastatin 20 mg PO DAILY 90 tabs 2RF E78.5 - Hyperlipidemia, unspecified Coding Level of Care Code Est Pt Level 4 (96306) Complex EM visit Add On G2211 Diagnoses Dyslipidemia E78.5 History of diffuse large B-cell lymphoma Z85.72 Additional Codes LINDSEY-7 Assessment Billing - LINDSEY-7 Assessment Tool: LINDSEY-7 Assessment 46171 ([id number])
== END 2023-12-24 11:27 | disposition home or self-care (01) ==
PROVIDERS: PCP Internal Medicine; Visit Provider Internal Medicine
DX: E78.5 Hyperlipidemia, unspecified (principal); Z85.72 Personal history of non-Hodgkin lymphomas
CPT/HCPCS: 99214; G2211

== ENCOUNTER 2024-04-27 13:29 | Outpatient (AMB) | payer MEDICARE, MEDICAID, SELFPAY ==
--- NOTE | 2024-04-27 13:31 | MHC.PC.OV ---
Vital Signs 04/27/24 13:32 Height 5 ft 9 in Weight 210 lb BMI 31.0 BP 100/70 Blood Pressure Location Rt brachial Position Sitting Pulse 77 Pulse Source Pulse Oximeter Pulse Oximetry (%) 100 Oxygen Delivery Method Room Air Intake Visit Reasons: 4 month fu - see comments Intake Note: Pt is here today for his 4mo. f/u Allergies silver Allergy (Unknown, Verified 04/27/24 13:48) Rash Penicillins [PENICILLINS] Adverse Reaction (Mild, Verified 04/27/24 13:48) DIARRHEA Medication List - Last Reconciled 04/27/24 by Tram Chi MD atorvastatin 20 mg PO DAILY biotin 1,000 mcg PO DAILY chlorpheniramine maleate (Allergy Relief (chlorpheniramine)) 4 mg PO Q6H PRN cholecalciferol (vitamin D3) 25 mcg PO DAILY famotidine 40 mg PO DAILY hydrocortisone 2.5% (Proctosol HC) 1 appl [place] BID-QID PRN psyllium husk 0.4 grams PO DAILY Tobacco use date assessed: 04/27/24 Dental Screening Dental Screen Date: 04/27/24 Did you have a dental visit in the last 12 months?: Yes Did you have a dental problem in the last 6 months where you did not have access to dental care?: No Was dental information given to patient?: Patient has dentist HPI 4 month fu - see comments HPI Details The patient is a 53-year-old male presenting for follow up on his hyperlipidemia. He is currently on atorvastatin 20 mg daily for hypercholesterolemia, which has improved notably since last evaluated, with LDL cholesterol decreasing from 176 mg/dL to 118 mg/dL. . For allergic rhinitis, the patient continues on chlorpheniramine, which he tolerates well without experiencing sedation, a common side effect. GERD is managed with famotidine 40 mg daily, providing effective symptom control. He reports intermittent hemorrhoidal bleeding, primarily associated with irritation, which is being managed with topical hydrocortisone, providing relief for occasional bleeding and irritation. He has a history of seizures, previously managed by a neurologist, but is currently off all seizure medications post-evaluation in August, which involved consultation with a neuro-oncologist and an MRI showing no recurrence of neurological issues related to his prior cancer treatment. He experienced a short episode of mild tinnitus in the left ear last February, which resolved quickly and without further symptoms, such as dizziness. The patient adheres to scheduled vaccinations: the influenza vaccine, COVID-19 booster, shingles, and pneumococcal vaccinations have all been administered. [facility] Medical History History of seizure disorder Right hip pain History of diffuse large B-cell lymphoma Hearing impairment Vitamin D deficiency Dyslipidemia B-cell lymphoma Onychomycosis of toenail Surgical History Hx of colonoscopy History of surgery Family History Father Skin cancer Mother Rheumatoid arthritis Dementia Mental health disorder Paternal Grandmother Dementia Paternal Grandfather Heart disease Brother No problems noted. Social History Housing: House Alcohol intake: never Patient Tobacco Use Status: Never used Tobacco e-Cigarette/Vaping Use: Never Used service: No Current occupational status: employed Cognitive needs: No Hearing needs: No Vision needs: Yes Questionnaire Thrive Questionnaire Date Thrive assessed: 12/24/23 I am a: Patient What is your living situation today?: I have a steady place to live Within the past 12 months, did the food you bought not last and you didn't have the money to get more?: Never true Within the past 12 months, did you worry whether your food would run out before you got money to buy more?: Never true Do you have trouble paying for medicines?: No Do you have trouble getting transportation to medical appointments?: No Do you have trouble paying your heating and electricity bill?: No Do you have trouble taking care of your child, family member or friend?: No Do you have trouble with day-to-day activities such as bathing, preparing meals, shopping, managing finances, etc.?: No Are you currently unemployed and looking for a job?: Yes Are you interested in more education?: No Please select the resources that you would like help with: None Currently or been in a relationship where the following occur: No concerns reported THRIVE Score: 0 LINDSEY-7 AMB Questionnaire LINDSEY-7 Date LINDSEY - 7 assessed: 12/24/23 Source: Developed by Lauren Brooks.W. Olegario, Cameron Hein and colleagues, with an educational avila from [employer]. Review of Systems Const Denies body aches, Denies fever(s) and Denies headache(s) ENT Denies dizziness, Denies headache(s) and Denies nasal congestion Card Denies chest pain, Denies lightheadedness and Denies dyspnea Resp Denies chest congestion, Denies cough and Denies dyspnea GI Denies abdominal pain and Denies change in bowel habits Reports no additional complaints Musc Denies back pain, Denies myalgias, Denies arthralgias, Denies joint swelling, Denies muscle cramps and Denies muscle weakness Neuro Denies dizziness, Denies headache(s) and Denies convulsions Psych Reports no additional complaints Endo Reports no additional complaints Artem/Lymph Reports no additional complaints Physical exam (Primary Care) Vital Signs: Last Vital Signs Pulse 77 04/27/24 13:32 BP 100/70 04/27/24 13:32 Pulse Ox 100 04/27/24 13:32 Oxygen Delivery Method Room Air 04/27/24 13:32 BMI result Body Mass Index 31.0 Tobacco/Smoking Status: Tobacco use Status Tobacco use date assessed 04/27/24 04/27/24 13:37 Patient Tobacco Use Status Never used Tobacco 04/27/24 13:37 e-Cigarette/Vaping Use Never Used 04/27/24 13:37 Thrive Assessment: Date of Thrive Assessment Date Thrive assessed 12/24/23 04/27/24 13:37 Currently or been in a relationship where the following occur: No concerns reported Const Other: Alert oriented x 3, no acute cardiorespiratory distress noted, ambulatory normal gait General: comfortable, no acute distress and alert Orientation/consciousness: patient oriented x3 [facility] Ears: external ears normal General nose exam: Normal external nose present Mouth: Normal oral and palatal mucosa present, oropharynx normal and moist mucous membranes Eyes General: appearance normal, both eyes and all related structures Neck Neck: Yes full ROM, Yes no lymphadenopathy and Yes supple Resp Effort & Inspection: normal respiratory effort and able to speak in complete sentences Auscultation: clear to auscultation bilaterally Cardio Rate: regular rate Rhythm: regular rhythm Heart sounds: S1 normal heart sound present and S2 normal heart sound present GI Palpation (GI): Soft to palpation, nontender and no masses Auscultation: normal bowel sounds Skin General skin exam: no rashes or lesions noted Neuro General: patient oriented x3, gait normal, tone normal, moves all extremities, Normal light touch and pain sensation and no focal motor deficits Cranial nerves: Yes CN's II-XII intact bilaterally Cognition (Neuro): normal cognition Extrem General: Yes full ROM, Yes no joint enlargement, Yes no clubbing, cyanosis or edema and Yes no calf tenderness Coding Level of Care Code Est Pt Level 4 (52746) Complex EM visit Add On G2211 Diagnoses Dyslipidemia E78.5 History of diffuse large B-cell lymphoma Z85.72 Assessment & Plan Assessment & Plan (1) Dyslipidemia: Code(s): E78.5 - Hyperlipidemia, unspecified Category: Medical (2) History of diffuse large B-cell lymphoma: Comment: Status post R-HiDAC chemotherapy followed by subsequent high-dose G-CSF autologous stem cell mobilization in 2015 Code(s): Z85.72 - Personal history of non-Hodgkin lymphomas Category: Medical Plan - Continue atorvastatin 20 mg daily for hypercholesterolemia.. - Continue chlorpheniramine for allergic rhinitis; no change in dosage suggested due to lack of side effects. - Continue famotidine 40 mg daily for GERD. - Ordered blood work to check lipids, vitamin D, liver function, and a complete blood count with differential. - Follow up on hemorrhoidal symptoms as needed; continue topical management for symptomatic relief. - Reinforce adherence to preventative care and wellness visits with vaccinations up to date. - Encourage cardiology follow-up regarding chest pain history and routine neurologic check-up related to previous seizure and cancer history. Patient was informed and verbally consented to the use of an ambient scribe for clinic note documentation during this visit. Orders: Orders Alanine Aminotransferase 04/27/24 E55.9 - Vitamin D deficiency, unspecified, E78.5 - Hyperlipidemia, unspecified Lipid Panel 04/27/24 E55.9 - Vitamin D deficiency, unspecified, E78.5 - Hyperlipidemia, unspecified Vitamin D 25-OH Total 04/27/24 E55.9 - Vitamin D deficiency, unspecified, E78.5 - Hyperlipidemia, unspecified Aspartate Amino Transferase 04/27/24 E55.9 - Vitamin D deficiency, unspecified, E78.5 - Hyperlipidemia, unspecified Complete Blood Count Auto Diff 04/27/24 Z85.72 - Personal history of non-Hodgkin lymphomas
[2024-04-27 13:32] VITALS: BP 100/70; PULSE 77; O2SAT 100; BMI 31.0
== END 2024-04-27 14:11 | disposition home or self-care (01) ==
LOC: HO.HMCC 13:29
PROVIDERS: PCP Internal Medicine; Visit Provider Internal Medicine
DX: E78.5 Hyperlipidemia, unspecified (principal); Z85.72 Personal history of non-Hodgkin lymphomas

== ENCOUNTER → 2024-04-27 13:29 | Outpatient (BNVA) | payer MEDICARE, MEDICAID, SELFPAY | PROVIDERS: PCP Internal Medicine; Visit Provider Internal Medicine | DX: E78.5 Hyperlipidemia, unspecified (principal); Z85.72 Personal history of non-Hodgkin lymphomas | CPT/HCPCS: 99212 ==

== ENCOUNTER 2024-05-05 09:17 | Outpatient (REF) | payer MEDICARE, MEDICAID, SELFPAY ==
[2024-05-05 13:14] LABS: MANUAL DIFF FLAG NO
[2024-05-05 13:23] LABS: Basophils Percent Auto 0.7 % (0-2); Eosinophils Absolute Auto 0.3 X10*3/uL (0.0-0.4); Eosinophils Percent Auto 4.9 % (0-4); Hematocrit 48.9 % (42.0-52.0); Hemoglobin 16.4 g/dl (14.0-18.0); Imm Gran Abs Auto 0.01 X10*3/uL (0.00-0.03); Imm Gran Pct Auto 0.2 % (0.0-0.4); Lymphocytes Absolute Auto 1.9 X10*3/uL (1.2-4.9); Lymphocytes Percent Auto 35.2 % (20-40); Mean Corpuscular HGB Conc 33.5 g/dl (31.0-36.0); Mean Corpuscular Hemoglobin 30.9 pg (27.0-33.0); Mean Corpuscular Volume 92.1 fL (80.0-98.0); Mean Platelet Volume 9.9 fL (9.4-12.4); Monocytes Absolute Auto 0.7 X10*3/uL (0.1-1.2); Monocytes Percent Auto 12.1 % (2-11); Neutrophils Absolute Auto 2.6 x10*3/uL (2.0-8.3); Neutrophils Percent Auto 46.9 % (45-73); Platelet Count 253 X10*3/uL (160-400); Red Blood Count 5.31 X10*6/uL (4.60-5.80); Red Cell Distribution Width 13.3 % (11.0-16.0); White Blood Count 5.5 X10*3/uL (4.8-10.8)
[2024-05-05 13:55] LABS: Alanine Aminotransferase 37 U/L (0-40); Aspartate Amino Transferase 34 U/L (5-37); Cholesterol 153 mg/dL (<200); HDL Cholesterol 47 mg/dL (>40); LDL Cholesterol Calculated 94 mg/dL (<100); Triglycerides 64 mg/dL (<150)
[2024-05-05 14:14] LABS: Vitamin D 25-OH Total 74.6 ng/mL (>30)
== END 2024-05-05 09:18 | disposition home or self-care (01) ==
LOC: HO.HMGCLDS 09:17
PROVIDERS: PCP Internal Medicine; Visit Provider Internal Medicine
DX: E55.9 Vitamin D deficiency, unspecified (principal); E78.5 Hyperlipidemia, unspecified; Z85.72 Personal history of non-Hodgkin lymphomas
CPT/HCPCS: 36415; 80061; 82306; 84450; 84460; 85025

== ENCOUNTER 2024-05-29 22:56 | Observation (INO) | payer MEDICARE, MEDICAID, SELFPAY ==
--- NOTE | ~2024-05-29 | CT_ITS ---
CLINICAL HISTORY: syncope, + hx of non-hogkin lymphoma ? PE, traum CT angiography chest with contrast. 3D Postprocessing. Comparison: None Findings: Moderate cardiomegaly. The thoracic aorta is normal caliber. No pulmonary artery filling defects. Small hiatal hernia. The lungs are clear. The visualized upper abdomen is unremarkable. Chronic appearing compression deformities of T1, T2, T3, T5. There is an acute appearing inferior endplate compression deformity of T6 with mild anterior height loss. Posterior wall retropulsion present measuring 2 mm. IMPRESSION: 1. No pulmonary emboli. 2. Acute T6 inferior endplate compression fracture. This document has been electronically signed by: Julio C Dewey MD on 05/30/2024 02:36:59
--- NOTE | ~2024-05-29 | CT_ITS ---
CLINICAL HISTORY: syncope CT head without contrast Comparison: MR - MRI [facility] [id number] - 03/03/19 15:17 EDT Findings: No intra-axial mass, midline shift, hydrocephalus, or acute hemorrhage. No significant atrophy-like change or white matter disease. There is no sinus or mastoid fluid. The orbits are unremarkable. There is no acute fracture. IMPRESSION: 1. No acute intracranial findings This document has been electronically signed by: Julio C Dewey MD on 05/30/2024 02:30:48
--- NOTE | ~2024-05-29 | CT_ITS ---
CLINICAL HISTORY: fall ? fx CT cervical spine without contrast Comparison: None Findings: Normal vertebral body alignment. No acute fracture deformity. Degenerative changes of the C5-6 disc space. Chronic appearing mild anterior T1 and T2 compression deformities. No acute findings on limited view of the intracranial contents. Soft tissues of the neck are normal. No consolidation or effusion at the lung apices. IMPRESSION: No acute findings. This document has been electronically signed by: Julio C Dewey MD on 05/30/2024 02:08:36
[2024-05-29 23:11] VITALS: BP 111/68; BP 115/53; PULSE 89; PULSE 90; RESP 18; TEMP 36.4; O2SAT 99; BMI 31.9
[2024-05-30] VITALS (10 sets, daily range): BP systolic 116–145; BP diastolic 66–86; PULSE 69–115; RESP 18–20; TEMP 36.5–37.4; O2SAT 95–99
--- NOTE | 2024-05-30 00:14 | ECG_ITS ---
Test Reason : LIGHTHEADEDNESS Blood Pressure : / mmHG Vent. Rate : 110 BPM Atrial Rate : 085 BPM P-R Int : 124 ms QRS Dur : 074 ms QT Int : 366 ms P-R-T Axes : 020 074 019 degrees QTc Int : 495 ms Sinus rhythm with frequent , and consecutive Premature ventricular complexes Possible Left atrial enlargement Abnormal ECG When compared with ECG of 16-MAR-2015 09:19, Premature ventricular complexes are now Present Non-specific change in ST segment in Inferior leads Non-specific change in ST segment in Lateral leads Referred By: Cassie Olivares Electronically Signed By:TRIPP FUENTES MD
--- NOTE | 2024-05-30 00:18 | ED.SYNCOPE ---
HPI - Syncope General Chief Complaint: Fall Stated Complaint: SYNCOPAL EPISODE, +LOC,NO THINNERS Time Seen by Provider: 05/29/24 23:10 History of Present Illness HPI narrative: Patient 53-year-old male with getting up subsequently felt very lightheaded. Had some blurred vision. Passed out. Not on blood thinners. The hit the back of his head and also the upper back. Has a history of non-Hodgkin's lymphoma. Currently in remission. No fever no chills. No diaphoresis. No focal weakness. No bloody stool. No chest pain no travel. Related Data Home Medications ?Medication ?Instructions ?Recorded ?Confirmed psyllium husk 0.4 gram capsule 0.4 g PO DAILY 03/13/22 07/11/23 cholecalciferol (vitamin D3) 25 25 mcg PO DAILY 12/24/23 mcg (1,000 unit) capsule hydrocortisone 2.5 % topical cream 1 appl [place] BID-QID PRN 12/24/23 with perineal applicator (Proctosol HC) biotin 800 mcg tablet 1,000 mcg PO DAILY 04/27/24 04/27/24 chlorpheniramine maleate 4 mg 4 mg PO Q6H PRN 04/27/24 tablet (Allergy Relief (chlorpheniramine)) Previous Rx's ?Medication ?Instructions ?Recorded atorvastatin 20 mg tablet 20 mg PO DAILY #90 tabs 12/24/23 famotidine 40 mg tablet 40 mg PO DAILY #90 tabs 01/12/24 Allergies Allergy/AdvReac Type Severity Reaction Status Date / Time silver Allergy Unknown Rash Verified 05/29/24 23:21 Penicillins [PENICILLINS] AdvReac Mild DIARRHEA Verified 05/29/24 23:21 Review of Systems Review of Systems: Positive syncope Yes all other systems are reviewed and are negative PMF Past Medical History Attestation statement: The following information was validated with the patient. Medical History History of seizure disorder Right hip pain History of diffuse large B-cell lymphoma Hearing impairment Vitamin D deficiency Dyslipidemia B-cell lymphoma Onychomycosis of toenail Surgical History Hx of colonoscopy History of surgery Family History Family History Father Skin cancer Mother Rheumatoid arthritis Dementia Mental health disorder Paternal Grandmother Dementia Paternal Grandfather Heart disease Brother No problems noted. Social History Social History Housing: House Alcohol intake: never Patient Tobacco Use Status: Never used Tobacco Smoked in Last 30 Days: No e-Cigarette/Vaping Use: Never Used Advance Directives: Yes Advance Directives on File: Yes Advance Directives Date on File: 06/09/23 Do you have a plan to hurt others: No Plan service: No Current occupational status: employed Cognitive needs: No Hearing needs: No Vision needs: Yes Physical Exam Vital Signs: Vital Signs: Last Vital Signs Temp 97.6 F 05/29/24 23:11 Pulse 104 H 05/30/24 02:01 Resp 18 05/29/24 23:11 BP 116/80 05/30/24 02:01 Pulse Ox 99 05/29/24 23:11 O2 Del Method Room Air 05/29/24 23:11 BMI result Body Mass Index 31.9 Appearance: Alert. Oriented X3. No acute distress. Eyes: Pupils equal, round and reactive to light. ENT: Pharynx normal. Neck: Normal inspection. Neck supple. No lymph nodes noted. No crepitus CVS: Normal heart rate and rhythm. Pulses normal. Normal S1 and S2 Respiratory: No respiratory distress. Breath sounds normal. No Wheezing. No rales Abdomen: Soft and nontender. No rigidity. No distention. good BS x4 Skin: Skin warm and dry. Normal skin color. Normal skin turgor. Extremities: No lower extremity edema. Neurovascular intact to all extremities. No Lacerations. No Rash Neuro: Oriented X 3. No motor deficit. No sensory deficit. Moving all extermities. No slurred speech Medications Administered Discontinued Medications Generic Name Dose Route Start Last Admin Trade Name Freq PRN Reason Stop Dose Admin Sodium Chloride 1,000 mls @ 999 mls/hr 05/30/24 00:15 05/30/24 01:41 Ns IV 05/30/24 01:15 Infused .Q1H1M ANSON Infusion Iohexol 65 ml 05/30/24 01:40 05/30/24 01:40 Iohexol 350 Mg/Ml 100 Ml Infus..Btl IV 05/30/24 01:41 65 ml ONCE ONE Administration Medical Decision Making Medical Decision Making [facility] Narrative: My interpretation patient's CT scan of the head was grossly negative for any acute evidence of bleeding no fracture. My interpretation of patient's EKG showed a sinus rhythm with frequent PVCs noted. The PVCs were in couplets of 3. CT the C-spine was done. My interpretation CT C-spine was grossly negative. Because patient has history non-Hodgkin's lymphoma. A CT a of the chest was done to rule out the possibility PE causing patient syncope. Patient's white count is normal. Hemoglobin is 17.5 no evidence for anemia. Patient's electrolytes showed no elevation in troponin. Patient's BUN and creatinine elevated likely consistent with dehydration. Given IV fluids here in the emergency department. Will admit for further evaluation. Patient's case consulted by the hospitalist team. Orthostatics were done. There was no significant difference. Differential Diagnosis Differential Diagnoses: The differential diagnosis associated with the presentation includes Syncope, head injury, PE, arrhythmia Admission/Observation Consideration of admission/observation: Escalation of care including admission/observation considered Consult Healthcare Provider Management of the patient was discussed with: Hospitalist Lab Data [facility] Lab Attestation statement: I reviewed the patient's lab results. 05/30/24 00:33 05/30/24 00:33 Labs: Lab Results 05/30/24 Range/Units 00:33 WBC 9.8 (4.8-10.8) X10*3/uL RBC 5.59 (4.60-5.80) X10*6/uL Hgb 17.5 (14.0-18.0) g/dl Hct 50.6 (42.0-52.0) % MCV 90.5 (80.0-98.0) fL MCH 31.3 (27.0-33.0) pg MCHC 34.6 (31.0-36.0) g/dl RDW 13.5 (11.0-16.0) % Plt Count 224 (160-400) X10*3/uL MPV 9.4 (9.4-12.4) fL Immature Gran % (Auto) 1.1 H (0.0-0.4) % Neut % (Auto) 73.6 H (45-73) % Lymph % (Auto) 16.9 L (20-40) % [place] % (Auto) 6.9 (2-11) % Eos % (Auto) 1.2 (0-4) % Baso % (Auto) 0.3 (0-2) % Lymph # (Auto) 1.7 (1.2-4.9) X10*3/uL [place] # (Auto) 0.7 (0.1-1.2) X10*3/uL Eos # (Auto) 0.1 (0.0-0.4) X10*3/uL Baso # (Auto) 0.0 (0.0-0.2) X10*3/uL Abs Immat Gran (auto) 0.11 H (0.00-0.03) X10*3/uL Absolute Neuts (auto) 7.2 (2.0-8.3) x10*3/uL Absolute Nucleated RBC 0.000 (0.0-0.012) X10*3/uL Nucleated RBC % (auto) 0.0 (0.0-0.2) /100WBC Sodium 144 (135-145) mmol/L Potassium 4.4 (3.3-5.1) mmol/L Chloride 107 (96-108) mmol/L Carbon Dioxide 30 H (22-29) mmol/L Anion Gap 11 L (12-20) BUN 20 H (9-16) mg/dL Creatinine 0.96 (0.5-1.4) mg/dL Estim Creat Clear Calc 100.3 Estimated GFR > 60 Random Glucose 121 H (60-115) mg/dL Calcium 9.6 (8.4-10.2) mg/dL Total Bilirubin 1.0 (0.0-1.0) mg/dL Direct Bilirubin 0.3 (0.0-0.5) mg/dL AST 41 H (5-37) U/L ALT 56 H (0-40) U/L Alkaline Phosphatase 86 (39-117) U/L Troponin I High Sens 3.4 (<3.5-35.0) ng/L Total Protein 6.6 (6.5-8.0) g/dL Albumin 4.1 (3.5-5.0) g/dL Independent Interpretation I performed an independent interpretation of an: EKG (Sinus heart rate is 100 with significant PVCs in triplets. No acute ST segment elevation.) and CT Scan (CT head grossly negative) External Record Review External record reviewed: Office record Chronic Conditions History of non-Hodgkin's lymphoma Discharge Plan Discharge Clinical Impression: Syncope Patient Disposition: Admitted As Inpatient Print Language: Uzbek
[2024-05-30 00:37] LABS: MANUAL DIFF FLAG NO
[2024-05-30] MEDS: 0.9 % Sodium Chloride 1,000 ML 999 ML IV (00:37)
[2024-05-30 00:43] LABS: Basophils Percent Auto 0.3 % (0-2); Eosinophils Absolute Auto 0.1 X10*3/uL (0.0-0.4); Eosinophils Percent Auto 1.2 % (0-4); Hematocrit 50.6 % (42.0-52.0); Hemoglobin 17.5 g/dl (14.0-18.0); Imm Gran Abs Auto 0.11 X10*3/uL (0.00-0.03); Imm Gran Pct Auto 1.1 % (0.0-0.4); Lymphocytes Absolute Auto 1.7 X10*3/uL (1.2-4.9); Lymphocytes Percent Auto 16.9 % (20-40); Mean Corpuscular HGB Conc 34.6 g/dl (31.0-36.0); Mean Corpuscular Hemoglobin 31.3 pg (27.0-33.0); Mean Corpuscular Volume 90.5 fL (80.0-98.0); Mean Platelet Volume 9.4 fL (9.4-12.4); Monocytes Absolute Auto 0.7 X10*3/uL (0.1-1.2); Monocytes Percent Auto 6.9 % (2-11); Neutrophils Absolute Auto 7.2 x10*3/uL (2.0-8.3); Neutrophils Percent Auto 73.6 % (45-73); Platelet Count 224 X10*3/uL (160-400); Red Blood Count 5.59 X10*6/uL (4.60-5.80); Red Cell Distribution Width 13.5 % (11.0-16.0); White Blood Count 9.8 X10*3/uL (4.8-10.8)
[2024-05-30 00:52] LABS: Alanine Aminotransferase 56 U/L (0-40); Albumin Level 4.1 g/dL (3.5-5.0); Alkaline Phosphatase 86 U/L (39-117); Anion Gap 11 (12-20); Aspartate Amino Transferase 41 U/L (5-37); Bilirubin Direct 0.3 mg/dL (0.0-0.5); Blood Urea Nitrogen 20 mg/dL (9-16); Calcium 9.6 mg/dL (8.4-10.2); Carbon Dioxide 30 mmol/L (22-29); Chloride 107 mmol/L (96-108); Creatinine Clr Calc Pharmacy 100.3; Estimated Glomerular Filt Rate > 60; Glucose Random 121 mg/dL (60-115); Potassium 4.4 mmol/L (3.3-5.1); Sodium 144 mmol/L (135-145); Total Protein 6.6 g/dL (6.5-8.0)
[2024-05-30 00:58] LABS: Troponin-I High Sensitivity 3.4 ng/L (<3.5-35.0)
[2024-05-30] MEDS: iohexoL 350 MG/ML 100 ML INFUS..BTL 65 ML IV (01:40)
[2024-05-30 03:22] LABS: Troponin-I High Sensitivity 4.4 ng/L (<3.5-35.0)
--- NOTE | 2024-05-30 04:10 | PC.NURSE ---
Dr. Pinto at the bedside, [facility] rec completed reference medical record,
--- NOTE | 2024-05-30 04:13 | P.HPHOSP_ITS ---
History of Present Illness Date of Service: 05/30/24 Chief Complaint: Syncope and fall This is a 53-year-old male with pertinent history of non-Hodgkin's lymphoma in remission, mixed hyperlipidemia, gastroesophageal reflux disease who presents to the emergency department for evaluation after a syncopal episode leading to a fall. Patient states he has been having head rushes and palpitations for the last 5-6 days. On the day of presentation, patient was in his pantry when he had a syncopal episode and fell hitting his head. Denies dizziness or lightheadedness prior to the fall. Unclear if he had having chest pain or palpitations prior to the fall. No jerking movement of extremities. No tongue bite, urinary or bowel incontinence. Patient states that about 10 years ago he had a seizure but he is off antiepileptics as per his neurologist and has not had a seizure in about 10 years. He is not on any antiseizure medications. Loss of consciousness was brief and no confusion after he regained consciousness. No fever, chills, nausea, vomiting, diarrhea, abdominal pain, shortness of breath, changes in urinary or bowel habits. In the emergency department, frequent PVCs noted Review of Systems 2 Constitutional: Constitutional: Reports no additional constitutional complaints Cardiovascular: Cardiovascular: Reports syncope and Reports rapid heart rate Respiratory: Respiratory: Reports no additional respiratory complaints Gastrointestinal: Gastrointestinal: Reports no additional gastrointestinal complaints Genitourinary: Genitourinary: Reports no additional male genitourinary complaints Neurologic: Reports syncope [facility] Medical History History of seizure disorder Right hip pain History of diffuse large B-cell lymphoma Hearing impairment Vitamin D deficiency Dyslipidemia B-cell lymphoma Onychomycosis of toenail Family History Father Skin cancer Mother Rheumatoid arthritis Dementia Mental health disorder Paternal Grandmother Dementia Paternal Grandfather Heart disease Brother No problems noted. Surgical History Hx of colonoscopy History of surgery Social History Housing: House Alcohol intake: never Patient Tobacco Use Status: Never used Tobacco Smoked in Last 30 Days: No e-Cigarette/Vaping Use: Never Used Advance Directives: Yes Advance Directives on File: Yes Advance Directives Date on File: 06/09/23 Do you have a plan to hurt others: No Plan service: No Current occupational status: employed Cognitive needs: No Hearing needs: No Vision needs: Yes Meds Allergies Allergy/AdvReac Type Severity Reaction Status Date / Time silver Allergy Unknown Rash Verified 05/29/24 23:21 Penicillins [PENICILLINS] AdvReac Mild DIARRHEA Verified 05/29/24 23:21 Active Medications: Current Medications Acetaminophen (Acetaminophen 325 Mg Tablet) 650 mg PO Q6H PRN PRN Reason: Pain, Mild 1-3,fever,headache Calcium Carbonate (Calcium Carbonate 750 Mg Tab.Chew) 750 mg PO Q4H PRN PRN Reason: Heartburn Enoxaparin Sodium (Enoxaparin Sodium 40 Mg/0.4 Ml Syringe) 40 mg SUBCUT Q24H ANSON Magnesium Hydroxide (Milk Of Magnesia 30 Ml Oral.Susp) 30 ml PO DAILY PRN PRN Reason: Constipation Melatonin (Melatonin 3 Mg Tablet) 6 mg PO BEDTIME PRN PRN Reason: Insomnia Ondansetron HCl (Ondansetron Hcl 4 Mg/2 Ml Vial) 4 mg IVPUSH Q8H PRN PRN Reason: Nausea and Vomiting Sodium Chloride (0.9 % Sodium Chloride Flush 3 Ml Syringe) 3 ml IVFLUSH QSHIFT [facility] Home Medications ?Medication ?Instructions ?Recorded ?Confirmed ?Last Taken ?Type psyllium husk 0.4 gram capsule 0.4 g PO DAILY 03/13/22 05/30/24 Unknown History cholecalciferol (vitamin D3) 25 25 mcg PO DAILY 12/24/23 05/30/24 Unknown History mcg (1,000 unit) capsule hydrocortisone 2.5 % topical cream 1 appl [place] BID-QID PRN perineal 12/24/23 05/30/24 Unknown History with perineal applicator (Proctosol HC) biotin 800 mcg tablet 1,000 mcg PO DAILY 04/27/24 05/30/24 Unknown History chlorpheniramine maleate 4 mg 4 mg PO Q6H PRN Allergic Symptoms 04/27/24 05/30/24 Unknown History tablet (Allergy Relief (chlorpheniramine)) Physical Exam 2 Vital Signs and Narrative: Vital Signs: Last Vital Signs Temp 97.7 F 05/30/24 02:11 Pulse 104 H 05/30/24 02:01 Resp 18 05/29/24 23:11 BP 116/80 05/30/24 02:01 Pulse Ox 99 05/29/24 23:11 O2 Del Method Room Air 05/29/24 23:11 BMI result Body Mass Index 31.9 Middle-aged male lying in bed in no distress Neck supple, no JVD Regular rate and rhythm, S1-S2 heard Regular breath sounds bilaterally, no wheezing or crackles appreciated Abdomen soft nontender, no guarding, no rigidity Patient is awake, alert and oriented to self, place, time and person ; no focal motor deficit Psych: Normal mood No pedal edema Results Labs 05/30/24 00:33 05/30/24 00:33 Labs: Laboratory Results - last 24 hr 05/30/24 05/30/24 00:33 02:57 MCV 90.5 MCH 31.3 MCHC 34.6 RDW 13.5 Plt Count 224 MPV 9.4 Immature Gran % (Auto) 1.1 H Neut % (Auto) 73.6 H Lymph % (Auto) 16.9 L [place] % (Auto) 6.9 Eos % (Auto) 1.2 Baso % (Auto) 0.3 Lymph # (Auto) 1.7 [place] # (Auto) 0.7 Eos # (Auto) 0.1 Baso # (Auto) 0.0 Abs Immat Gran (auto) 0.11 H Absolute Neuts (auto) 7.2 Absolute Nucleated RBC 0.000 Nucleated RBC % (auto) 0.0 Anion Gap 11 L Estim Creat Clear Calc 100.3 Estimated GFR > 60 Random Glucose 121 H Calcium 9.6 Total Bilirubin 1.0 Direct Bilirubin 0.3 AST 41 H ALT 56 H Alkaline Phosphatase 86 Troponin I High Sens 3.4 4.4 Total Protein 6.6 Albumin 4.1 Assessment and Plan (1) Syncope: Status: Acute Plan This is a 53-year-old male with pertinent history of non-Hodgkin's lymphoma in remission, mixed hyperlipidemia, gastroesophageal reflux disease who presents to the emergency department for evaluation after a syncopal episode leading to a fall. #. Syncope: Orthostatics negative in the ER. Frequent PVCs noted in the ER. Will admit patient for observation and monitor on telemetry. Consulted Cardiology, appreciate assistance #. Acute T6 endplate compression fracture: Conservative management with analgesics p.r.n.. Outpatient follow-up #. Mixed hyperlipidemia: On statin #. Gastroesophageal reflux disease: On famotidine Med rec pending DVT prophylaxis: Lovenox Full code Quality Stroke Does the patient have a stroke diagnosis?: No VTE Prior VTE?: No VTE Risk Level:: Medical - moderate - high VTE Device Contraindication: Treatment Not Indicated VTE Drug Contraindication: N/A - Med Ordered
[2024-05-30 04:35] LABS: Hematocrit 47.2 % (42.0-52.0); Hemoglobin 16.1 g/dl (14.0-18.0); Mean Corpuscular HGB Conc 34.1 g/dl (31.0-36.0); Mean Corpuscular Hemoglobin 31.1 pg (27.0-33.0); Mean Corpuscular Volume 91.1 fL (80.0-98.0); Mean Platelet Volume 9.2 fL (9.4-12.4); Platelet Count 209 X10*3/uL (160-400); Red Blood Count 5.18 X10*6/uL (4.60-5.80); Red Cell Distribution Width 13.5 % (11.0-16.0); White Blood Count 13.6 X10*3/uL (4.8-10.8)
[2024-05-30 04:49] LABS: Anion Gap 12 (12-20); Blood Urea Nitrogen 19 mg/dL (9-16); Calcium 9.2 mg/dL (8.4-10.2); Carbon Dioxide 28 mmol/L (22-29); Chloride 108 mmol/L (96-108); Creatinine Clr Calc Pharmacy 103.6; Estimated Glomerular Filt Rate > 60; Glucose Random 107 mg/dL (60-115); Potassium 4.3 mmol/L (3.3-5.1); Sodium 144 mmol/L (135-145)
[2024-05-30] MEDS: Acetaminophen 325 MG TABLET 650 MG PO ×3 (06:00→23:00)
--- NOTE | 2024-05-30 08:59 | PHA.MEDREC ---
Addendum entered by Jose Alberto Quintana [facility] 05/30/24 09:16: MED REC CHECKED BY [facility] Original Note: Pharmacy Consult ? Medication Reconciliation Pharmacy has completed the medication reconciliation. Reviewed med rec done by nursing, patient confirmed. His doctor stopped keppra in August 2023. He last took his medications yesterday morning.
--- NOTE | 2024-05-30 09:12 | PC.NURSE ---
patient is awake, alert and oriented x3. Sat up and ate breakfast this morning. skin WNL, sinus tach in the low 100s, occasional pvc on the monitor. VSS
--- NOTE | 2024-05-30 10:24 | ECG_ITS ---
Test Reason : V_TACH Blood Pressure : / mmHG Vent. Rate : 101 BPM Atrial Rate : 101 BPM P-R Int : 122 ms QRS Dur : 070 ms QT Int : 350 ms P-R-T Axes : 028 -19 042 degrees QTc Int : 453 ms Sinus tachycardia with frequent , and consecutive Premature ventricular complexes Possible Left atrial enlargement Minimal voltage criteria for LVH, may be normal variant ( R in aVL ) Inferior infarct , age undetermined Abnormal ECG When compared with ECG of 30-MAY-2024 00:24, Inferior infarct is now Present Referred By: Rajat Grant Electronically Signed By:TATIANA FOURNIER
--- NOTE | 2024-05-30 10:27 | PC.NURSE ---
patient noted to have multiple runs of unsustained vtach on tele monitor, patient asymptomatic. denies chest pain, sob. repeat ekg ordered, pedicab driver at bedside. attending physcian notified
[2024-05-30 11:18] LABS: Magnesium 1.7 mg/dL (1.6-2.6)
[2024-05-30] MEDS: Metoprolol Tartrate 25 MG TABLET PO ×3 (11:40→23:01)
--- NOTE | 2024-05-30 11:55 | PM.EVENT ---
Event Note Date of Service: 05/30/24 Event Note: Pt see and examined, admitted this morning, 53-year-old male with pertinent history of non-Hodgkin's lymphoma in remission, mixed hyperlipidemia, gastroesophageal reflux disease who presents to the emergency department for evaluation after a syncopal episode leading to a fall, found to have intermittent ventricular tachycardia Syncope with ventricular tachycardia -cardiologgy advises metoprolol , echo -replace magnesium Acute T6 endplate compression fracture: Conservative management with analgesics p.r.n.. Outpatient follow-up Mixed hyperlipidemia: On statin Gastroesophageal reflux disease: On famotidine DVT prophylaxis: Lovenox Full code Time Spent With Patient Time: Total time managing care of this patient today ____ minutes.
--- NOTE | 2024-05-30 11:59 | P.CONCA_ITS ---
History of Present Illness History of Present Illness Date of Service: 05/30/24 Requesting physician: Rajat Rosario Consult reason: other (Syncope) Chief complaint: syncope Narrative: Thank you for referring Rony in cardiology consultation for syncopal episode. He is a 53-year-old male with prior history of diffuse large B-cell lymphoma about 9 years ago treated [facility] with chemotherapy. Did not receive any radiation therapy. Patient said this is currently in remission. He was tested for cardiac toxicity with echocardiogram 3 years ago. This was reported as normal. He has been in general good health. Has history of hyperlipidemia which is currently under treatment. Has hearing impairment. Also has some anxiety related to his cancer but this is now under non pharmacologic therapy. He has no prior history of cardiac issues including no history of coronary artery disease, cardiomyopathy, congestive heart failure. He denies any prior syncopal episodes. 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 About 5 6 days ago he started noticing symptoms of strong heartbeat palpitation with no prolonged fast heart rate associated with lightheadedness. He did not pay much attention to it felt it was probably related to his dietary habits. He said he does intermittent fasting and eats about 1 full meal a day with intermittent snacks. He said he has been doing this for many years. This is not a recent behavior. He came to the hospital after passing out. Orthostatic vitals on admission within normal limits. EKG shows normal sinus rhythm with frequent PVCs with salvos of 3 beat nonsustained VT with no significant QT prolongation. His magnesium level was noted to be 1.7 this morning. He is currently not on any cardiac medications. He is on statin therapy for hyperlipidemia. No recent history of exertional chest pain or shortness of breath. No heart failure symptoms. No recent viral illness. Review of Systems 2 Constitutional: Constitutional: Reports no additional constitutional complaints Eyes: Eyes: Reports no additional eye complaints Cardiovascular: Cardiovascular: Denies chest pain, Denies chest pain with activity, Denies leg edema, Reports lightheadedness, Reports Loss of Consciousness, Reports palpitations, Denies dyspnea, Denies dyspnea on exertion and Denies orthopnea Respiratory: Respiratory: Reports no additional respiratory complaints, Denies dyspnea and Denies dyspnea on exertion Gastrointestinal: Gastrointestinal: Reports no additional gastrointestinal complaints Musculoskeletal: Musculoskeletal: Reports no additional musculoskeletal complaints Neurologic: Reports system reviewed and no additional complaints, except as documented Psychiatric: Psychiatric: Reports anxiety Endocrine: Endocrine: Reports no additional endocrine complaints and Reports palpitations PMFSH Past Medical History Medical History History of seizure disorder Right hip pain History of diffuse large B-cell lymphoma Hearing impairment Vitamin D deficiency Dyslipidemia B-cell lymphoma Onychomycosis of toenail Family History Family History Father Skin cancer Mother Rheumatoid arthritis Dementia Mental health disorder Paternal Grandmother Dementia Paternal Grandfather Heart disease Brother No problems noted. Surgical History Surgical History Hx of colonoscopy History of surgery Social History Social History Housing: House Alcohol intake: never Patient Tobacco Use Status: Never used Tobacco Smoked in Last 30 Days: No e-Cigarette/Vaping Use: Never Used Advance Directives: Yes Advance Directives on File: Yes Advance Directives Date on File: 06/09/23 Do you have a plan to hurt others: No Plan service: No Current occupational status: employed Cognitive needs: No Hearing needs: No Vision needs: Yes Meds Allergies Allergy/AdvReac Type Severity Reaction Status Date / Time silver Allergy Unknown Rash Verified 05/29/24 23:21 Penicillins [PENICILLINS] AdvReac Mild DIARRHEA Verified 05/29/24 23:21 Active Medications: Current Medications Acetaminophen (Acetaminophen 325 Mg Tablet) 650 mg PO Q6H PRN PRN Reason: Pain, Mild 1-3,fever,headache Last Admin: 05/30/24 06:00 Dose: 650 mg Atorvastatin Calcium (Atorvastatin Calcium 20 Mg Tablet) 20 mg PO DAILY ANSON Calcium Carbonate (Calcium Carbonate 750 Mg Tab.Chew) 750 mg PO Q4H PRN PRN Reason: Heartburn Enoxaparin Sodium (Enoxaparin Sodium 40 Mg/0.4 Ml Syringe) 40 mg SUBCUT Q24H ANSON Last Admin: 05/30/24 10:02 Dose: Not Given Famotidine (Famotidine 20 Mg Tablet) 40 mg PO DAILY ANSON Hydrocortisone (Hydrocortisone 2.5 % Rectal Cr 30 Gm Tube) 1 appl ND BID-QID PRN PRN Reason: perineal Magnesium Hydroxide (Milk Of Magnesia 30 Ml Oral.Susp) 30 ml PO DAILY PRN PRN Reason: Constipation Melatonin (Melatonin 3 Mg Tablet) 6 mg PO BEDTIME PRN PRN Reason: Insomnia Metoprolol Tartrate (Metoprolol Tartrate 25 Mg Tablet) 25 mg PO Q6H [facility]; Protocol Last Admin: 05/30/24 11:40 Dose: 25 mg Non-Formulary Medication (Biotin) 800 mcg PO DAILY [facility] Non-Formulary Medication (Chlorpheniramine Maleate [Allergy Relief(Chlorpheniramn)]) 4 mg PO Q6H PRN PRN Reason: Allergic Symptoms Non-Formulary Medication (Psyllium Husk) 0.4 gm PO DAILY [facility] Ondansetron HCl (Ondansetron Hcl 4 Mg/2 Ml Vial) 4 mg IVPUSH Q8H PRN PRN Reason: Nausea and Vomiting Sodium Chloride (0.9 % Sodium Chloride Flush 3 Ml Syringe) 3 ml IVFLUSH QSHIFT [facility] Last Admin: 05/30/24 08:14 Dose: Not Given Vitamin D (Cholecalciferol (Vitamin D3) 25 Mcg Tablet) 25 mcg PO DAILY [facility] Home Medications ?Medication ?Instructions ?Recorded ?Confirmed ?Last Taken ?Type psyllium husk 0.4 gram capsule 0.4 g PO DAILY 03/13/22 05/30/24 05/29/24 History cholecalciferol (vitamin D3) 25 25 mcg PO DAILY 12/24/23 05/30/24 05/29/24 History mcg (1,000 unit) capsule hydrocortisone 2.5 % topical cream 1 appl ND BID-QID PRN perineal 12/24/23 05/30/24 Unknown History with perineal applicator (Proctosol HC) biotin 800 mcg tablet 800 mcg PO DAILY 04/27/24 05/30/24 05/29/24 History chlorpheniramine maleate 4 mg 4 mg PO Q6H PRN Allergic Symptoms 04/27/24 05/30/24 Unknown History tablet (Allergy Relief (chlorpheniramine)) Physical Exam 2 Vital Signs: Vital Signs: Last Vital Signs Temp 99.3 F 05/30/24 08:00 Pulse 115 H 05/30/24 11:40 Resp 20 05/30/24 10:22 BP 124/73 05/30/24 10:22 Pulse Ox 95 05/30/24 10:22 O2 Del Method Room Air 05/30/24 10:22 BMI result Body Mass Index 31.9 Const: General: cooperative, comfortable, no acute distress, alert, awake, Physically active and anxious Nutritional Appearance: overweight O rientation/consciousness: patient oriented x3 HEENT: Head: Yes normocephalic and Yes atraumatic Neck: Neck: Yes trachea midline, Yes supple and Yes no JVD Resp: Effort & Inspection: normal respiratory effort Auscultation: clear to auscultation bilaterally Cardio: Jugular venous distension: no JVD Rate: regular rate Rhythm: a bnormal rhythm with ectopic beats Heart sounds: S1 normal heart sound present, S2 normal heart sound present, no click, no gallops, no murmurs and no rubs GI: Auscultation: normal bowel sounds Skin: General skin exam: no rashes or lesions noted Neuro: General: patient oriented x3 and no focal motor deficits Extrem: General: Yes no clubbing, cyanosis or edema Psych: Appearance: grossly normal Affect: Anxious affect present Objective Labs and Meds 05/30/24 04:22 05/30/24 04:22 Lab results: Laboratory Results - last 24 hr 05/30/24 05/30/24 05/30/24 00:33 02:57 04:22 WBC 9.8 13.6 H RBC 5.59 5.18 Hgb 17.5 16.1 Hct 50.6 47.2 MCV 90.5 91.1 MCH 31.3 31.1 MCHC 34.6 34.1 RDW 13.5 13.5 Plt Count 224 209 MPV 9.4 9.2 L Immature Gran % (Auto) 1.1 H Neut % (Auto) 73.6 H Lymph % (Auto) 16.9 L Bremer % (Auto) 6.9 Eos % (Auto) 1.2 Baso % (Auto) 0.3 Lymph # (Auto) 1.7 Bremer # (Auto) 0.7 Eos # (Auto) 0.1 Baso # (Auto) 0.0 Abs Immat Gran (auto) 0.11 H Absolute Neuts (auto) 7.2 Absolute Nucleated RBC 0.000 0.000 Nucleated RBC % (auto) 0.0 0.0 Sodium 144 144 Potassium 4.4 4.3 Chloride 107 108 Carbon Dioxide 30 H 28 Anion Gap 11 L 12 BUN 20 H 19 H Creatinine 0.96 0.93 Estim Creat Clear Calc 100.3 103.6 Estimated GFR > 60 > 60 Random Glucose 121 H 107 Calcium 9.6 9.2 Magnesium Total Bilirubin 1.0 Direct Bilirubin 0.3 AST 41 H ALT 56 H Alkaline Phosphatase 86 Troponin I High Sens 3.4 4.4 Total Protein 6.6 Albumin 4.1 05/30/24 11:00 WBC RBC Hgb Hct MCV MCH MCHC RDW Plt Count MPV Immature Gran % (Auto) Neut % (Auto) Lymph % (Auto) Bremer % (Auto) Eos % (Auto) Baso % (Auto) Lymph # (Auto) Bremer # (Auto) Eos # (Auto) Baso # (Auto) Abs Immat Gran (auto) Absolute Neuts (auto) Absolute Nucleated RBC Nucleated RBC % (auto) Sodium Potassium Chloride Carbon Dioxide Anion Gap BUN Creatinine Estim Creat Clear Calc Estimated GFR Random Glucose Calcium Magnesium 1.7 Total Bilirubin Direct Bilirubin AST ALT Alkaline Phosphatase Troponin I High Sens Total Protein Albumin Assessment and Plan (1) Syncope: Status: Acute Patient with syncopal episode associated with palpitation. There was no obvious suggestion of orthostatic syncope. Cardiac syncope is likely and concerning. He has frequent ventricular arrhythmias, see below. Could be related to chemotherapy related to cardiotoxicity. Will need echocardiogram to assess for LV systolic and diastolic function. Depending on the findings may also needs inpatient ischemic workup. Will follow closely. Continue full disclosure cardiac telemetry. (2) Ventricular arrhythmia: Status: Acute Noted frequent ventricular arrhythmias with monomorphic salvos of nonsustained VT 3 beats. Magnesium is on the slightly lower side. Aggressively replace magnesium with IV magnesium therapy at least 2 g. Follow-up magnesium level. There is no clear evidence of QT prolongation family history of sudden cardiac that. Cardiomyopathy is likely and workup as above. Start metoprolol 25 mg q.6 hours. Continue IV hydration. Full disclosure cardiac telemetry. Will follow with you closely. Greater than 40 minutes was spent in managing his care Procedures Date of Service Date of Service: 05/30/24
[2024-05-30] MEDS: Magnesium Sulfate/D5W 1 GM/100 ML PIGGYBACK IV (12:51)
[2024-05-30] MEDS: Atorvastatin Calcium 20 MG TABLET PO (12:52)
[2024-05-30] MEDS: Famotidine 20 MG TABLET 40 MG PO (12:52)
--- NOTE | 2024-05-30 13:01 | PC.NURSE ---
patient remains awake and alert x4, patient still having occasional runs of vtach, patient is asymptomatic. denies sob/chest pain/palpitations at this time. patient medicated per MAR, magnesium blood draw ran, 1.7 resulted. mag replenishment started by this RN.
--- NOTE | 2024-05-30 14:26 | PC.NURSE ---
patient ambulated with two standby assist due to hx of syncope prior to ED admission. patient ambulated well, steady gait.
--- NOTE | 2024-05-30 15:10 | PC.NURSE ---
patient is alert and oriented x4, ambulatory with standby assist due to prev syncopal episodes at home. patient is on the tele monitor, normal sinus rhythm, patient having occasional runs of unsustained vtach, patient asymptomatic, denies sob/chest pain/palpitations. patient given prn tylenol for back pain. patient is very pleasant, reading book in room, no current needs. patient ate lunch
--- NOTE | 2024-05-30 17:45 | PC.NURSE ---
patient is resting quietly in bed, resp even and unlabored. patient has not had any runs of vtach on tele for about a half an hour. patient VSS, medicated per MAR
[2024-05-30] MEDS: 0.9 % Sodium Chloride Flush 3 ML SYRINGE IVFLUSH (23:02)
[2024-05-31] VITALS (8 sets, daily range): BP systolic 111–141; BP diastolic 64–83; PULSE 62–80; RESP 18–20; TEMP 36.3–37.1; O2SAT 93–99
[2024-05-31] MEDS: Metoprolol Tartrate 25 MG TABLET PO ×3 (06:17→17:33)
[2024-05-31] MEDS: Acetaminophen 325 MG TABLET 650 MG PO ×3 (06:19→21:12)
--- NOTE | 2024-05-31 07:00 | CA_ITS ---
Transthoracic Echocardiogram Patient (Last, First, Middle): Rony Guidry C Gender: Male Date of : 1970 Age: 53 Procedure Date: 05/31/2024 Procedure Type: Transthoracic Echocardiogram Location: [facility] [place] Height: 175.26 cm Weight: 97.98 kg BSA: 2.13 m2 Heart Rate: 71 bpm BP: 120 / 70 mmHg Grant Administrator: CHELSY Referring MD: Rajat Grant MD Symptoms: syncope Study Quality: Fair w/Contrast ECG Rhythm: Sinus Conclusions: - The left ventricular systolic function is normal. The calculated ejection fraction is 56% by biplane method. - Possible basal inferolateral hypokinesis - No obvious valvular pathology seen on this study. Findings Procedure Information Contrast agent, definity, is being given per protocol without apparent complications. Left Ventricle Normal left ventricular cavity size. There is normal left ventricular wall thickness. The left ventricular systolic function is normal. The calculated ejection fraction is 56% by biplane method. Diastolic function is normal for age. Possible basal inferolateral hypokinesis Wall Motion Rest Echo Findings The basal inferolateral segment is hypokinetic. Right Ventricle Normal right ventricular cavity size and systolic function. Atria Both atria are normal in size. Aortic Valve There is a normal trileaflet aortic valve. There is no aortic valve stenosis. There is no aortic valve regurgitation. Mitral Valve The mitral valve appears normal. There is trace mitral valve regurgitation. There is no mitral valve stenosis. Pulmonic Valve The pulmonic valve is likely normal. Tricuspid Valve There is trace tricuspid valve regurgitation. Tricuspid regurgitation envelope is inadequate for calculation of right ventricular systolic pressure. Great Vessels The asc aorta is normal in size. Venous The inferior vena cava was not well visualized. Pericardium/Pleural There is no evidence of pericardial effusion. Prior Study Comparison No prior study available for comparison. Recommendations, Care & Conclusions No obvious valvular pathology seen on this study. Measurements 2D Linear Measurements IVSd: 0.95 0.6-0.9/0.6-1.0 cm LVIDd: 4.90 3.9-5.3/4.2-5.9 cm LVIDd Index: 2.30 2.4-3.2/2.2-3.1 cm/m2 LVIDs: 3.05 2.0-3.6 cm LVPWd: 0.85 0.7-1.1 cm LA Diam: 4.10 2.7-3.8/3.0-4.0 cm LAIDs Index: 1.92 1.5-2.3 cm/m2 LV Mass: 190.02 67-162/88-224 g LV Mass Index: 89.21 43-95/49-115 g/m2 LVOT Diam: 2.40 3.0+(-)1.3 cm 2D Systolic Function EF 4C: 59.00 >55% EF 2C: 56.50 >55% EF BiP: 55.90 >55% Mitral Valve MV Pk E: 0.56 MV PK A: 0.66 MV Decel Time: 255.00 E/A: 0.80 E'Lateral: 8.70 E'Medial: 7.83 E/E' Med: 7.20 E/E' Lat: 6.40 PHT: 75.00 MVA PHT: 2.93 Decel Baker: 2.20 Aortic Valve AoV Pk Victor M: 1.14 AoV Mn Victor M: 0.82 AoV VTI: 0.23 AoV Pk Grad: 5.00 Aov Mn Grad: 3.00 NOREEN Cont.VTI: 3.78 LVOT LVOT Pk Victor M: 0.86 LVOT Mn Victor M: 0.64 LVOT VTI: 0.19 LVOT Pk Grad: 3.00 LVOT Mn Grad: 2.00 LVOT Diam: 2.40 LVOT Area: 4.52 Diastolic Function MV Pk E: 0.56 MV Pk A: 0.66 E/A: 0.80 E'Medial: 7.83 E/E' Med: 7.20 E' Laterial: 8.70 E/E' Lat: 6.40 Right Ventricle TAPSE (mm): 25.30 TVS' Victor M: 13.10 Great Vessels Aorta Sinus of Valsalva: 3.30 2.0-3.5 cm Ao Asc: 3.20 2.1-3.4 cm Pulmonary Valve PV Pk Victor M: 0.91 Peak PV Grad: 3.00 Updated in Other Vendor System with Status of Final Vin Carreno MD electronically signed on 05/31/2024 12:42:13 PM with status of Final
[2024-05-31 08:01] LABS: Anion Gap 12 (12-20); Blood Urea Nitrogen 18 mg/dL (9-16); Calcium 8.8 mg/dL (8.4-10.2); Carbon Dioxide 23 mmol/L (22-29); Chloride 109 mmol/L (96-108); Estimated Glomerular Filt Rate > 60; Glucose Random 90 mg/dL (60-115); Magnesium 1.9 mg/dL (1.6-2.6); Potassium 4.7 mmol/L (3.3-5.1); Sodium 139 mmol/L (135-145)
[2024-05-31] MEDS: Atorvastatin Calcium 20 MG TABLET PO (08:36)
[2024-05-31] MEDS: Cholecalciferol (Vitamin D3) 25 MCG TABLET PO (08:36)
[2024-05-31] MEDS: Famotidine 20 MG TABLET 40 MG PO (08:36)
[2024-05-31] MEDS: 0.9 % Sodium Chloride Flush 3 ML SYRINGE IVFLUSH ×3 (08:36→21:11)
[2024-05-31] MEDS: Enoxaparin Sodium 40 MG/0.4 ML SYRINGE SUBCUT (08:36)
--- NOTE | 2024-05-31 09:16 | MHC.CM.PN ---
Sujatha 05/31/24, Pt lives with housemates, he is independent, no home health services or DME. HCP is his father Avel, and brother Triston. CM will call PCP office for copy. PCP confirmed: Tram Chi. Pt. is able to arrange transport home at [place]. DCP: home, self care. CM to follow for DC needs.
--- NOTE | 2024-05-31 10:07 | PM.PNCARD ---
Subjective Subjective Date of Service: 05/31/24 Interval history: He states that he feels okay. No new complaints. No chest pain. No prior cardiac history. Review of Systems Review of Systems Yes all other systems are reviewed and are negative Constitutional: Reports as per HPI and Reports no additional constitutional complaints Eyes: Reports as per HPI and Denies no additional eye complaints Denies system reviewed and no additional complaints, except as documented and Reports as per HPI Cardiovascular: Reports as per HPI, Reports no additional cardiovascular complaints, Denies acrocyanosis, Denies cool extremities, Denies chest pain, Denies leg edema, Denies lightheadedness, Denies palpitations and Denies dyspnea Respiratory: Reports as per HPI, Denies no additional respiratory complaints and Denies dyspnea Gastrointestinal: Reports as per HPI and Denies no additional gastrointestinal complaints Genitourinary: Reports no additional male genitourinary complaints and Reports as per HPI Musculoskeletal: Reports no additional musculoskeletal complaints and Reports as per HPI Skin/Breast: Reports system reviewed and no additional complaints, except as docu Reports system reviewed and no additional complaints, except as documented and Reports as per HPI Psychiatric: Reports no additional psychiatric complaints and Reports as per HPI Endocrine: Reports no additional endocrine complaints, Reports as per HPI and Denies palpitations Hematologic/Lymphatic: Reports no additional hematologic/lymphatic complaints and Reports as per HPI Allergic/Immunologic: Reports no additional allergic/immunologic complaints and Reports as per HPI Physical Exam Vital Signs: Last Vital Signs Temp 98.7 F 05/31/24 07:04 Pulse 62 05/31/24 07:04 Resp 18 05/31/24 07:04 BP 120/70 05/31/24 07:04 Pulse Ox 97 05/31/24 07:04 O2 Del Method Room Air 05/31/24 07:04 BMI result Body Mass Index 31.9 Const General: comfortable and no acute distress Orientation/consciousness: patient oriented x3 HEENT Other: Unremarkable Head: Yes normal to inspection Neck Neck: Yes normal visual inspection Chest Chest palpation & inspection: normal inspection of the chest Resp Auscultation: clear to auscultation bilaterally Cardio Palpation: normal PMI Heart sounds: S1 normal heart sound present, S2 normal heart sound present, no gallops, no murmurs and no rubs GI Palpation (GI): Soft to palpation Back/Spine/Pelvis Other: unremarkable Skin General skin exam: no rashes or lesions noted Neuro General: patient oriented x3 Extrem General: Yes normal to inspection Psych Mental Status: mental status grossly normal Objective Labs and Meds 05/30/24 04:22 05/31/24 07:13 Lab results: Laboratory Results - last 24 hr 05/30/24 05/31/24 11:00 07:13 Hold Purple Top SEE NOTE Sodium 139 Potassium 4.7 Chloride 109 H Carbon Dioxide 23 Anion Gap 12 BUN 18 H Creatinine 0.90 Estim Creat Clear Calc 107.0 Estimated GFR > 60 Random Glucose 90 Calcium 8.8 Magnesium 1.7 1.9 Progress Note: A&P Assessment and plan (1) History of diffuse large B-cell lymphoma: Status: Acute (2) Syncope: Status: Acute (3) Ventricular arrhythmia: Status: Acute Plan Ventricular arrhythmia noted on telemetry but no evidence of sustained VT. As mentioned in the prior consultation, replace lytes. Await echocardiogram. If any clear evidence of cardiomyopathy, we will need further workup. He has been started on beta-blockers. Time Spent With Patient Time: Total time managing care of this patient today ____ minutes. Progress Note: Quality Stroke Does the patient have a stroke diagnosis?: No Procedures Date of Service Date of Service: 05/31/24
--- NOTE | 2024-05-31 11:52 | P.DS_ITS ---
DS: Providers Provider Date of Service: 05/31/24 Date of admission: 05/30/24 02:47 Date of discharge: 05/31/24 Primary care physician: Tram Chi MD Consults: 05/30/24 04:14 Consult to Cardiology Routine Consulting Provider: [facility] Reason for consultation: syncope Has provider been notified: Yes DS: Diagnosis Discharge Diagnosis (1) History of diffuse large B-cell lymphoma: Status: Acute (2) Syncope: Status: Acute (3) Ventricular arrhythmia: Status: Acute DS: Summary Hospital Course Hospital Course: Admission hpi Chief Complaint: Syncope and fall This is a 53-year-old male with pertinent history of non-Hodgkin's lymphoma in remission, mixed hyperlipidemia, gastroesophageal reflux disease who presents to the emergency department for evaluation after a syncopal episode leading to a fall. Patient states he has been having head rushes and palpitations for the last 5-6 days. On the day of presentation, patient was in his pantry when he had a syncopal episode and fell hitting his head. Denies dizziness or ligh theadedness prior to the fall. Unclear if he had having chest pain or palpitations prior to the fall. No jerking movement of extremities. No tongue bite, urinary or bowel incontinence. Patient states that about 10 years ago he had a seizure but he is off antiepileptics as per his neurologist and has not had a seizure in about 10 years. He is not on any antiseizure medications. Loss of consciousness was brief and no confusion after he regained consciousness. No fever, chills, nausea, vomiting, diarrhea, abdominal pain, shortness of breath, changes in urinary or bowel habits. In the emergency department, frequent PVCs noted Hospital course: 53-year-old male with pertinent history of non-Hodgkin's lymphoma in remission, mixed hyperlipidemia, gastroesophageal reflux disease who presented to the emergency department for evaluation after a syncopal episode leading to a fall, found to have intermittent ventricular tachycardia and PVC, orthos negative. QTC normal, potassium and K normal. He was seen by cardiology and was recommended for metoprolol which has reduced PVCs substantially. Echocardiogram show-- - The left ventricular systolic function is normal. The calculated ejection fraction is 56% by biplane method. - Possible basal inferolateral hypokinesis - No obvious valvular pathology seen on this study. Also trying to kep Magnesium at upper limit normal. There is concern for NSVT leading to syncope and thererefore cardiology advises transfering to [facility] for [place] studies Acute T6 endplate compression fracture: Conservative management with analgesics p.r.n.. Outpatient follow-up Mixed hyperlipidemia: On statin Gastroesophageal reflux disease: On famotidine Time Attestation Discharge Coordination Time (in mins): 45 Quality: Safe Use of Opioids Does Pt have an Active Cancer Diagnosis on the Problem List?: No Quality: Stroke Does the patient have a stroke diagnosis?: No Physical Exam Vital Signs: Vital Signs: Last Vital Signs Temp 98.1 F 05/31/24 11:17 Pulse 67 05/31/24 11:17 Resp 18 05/31/24 11:17 BP 126/83 05/31/24 11:17 Pulse Ox 99 05/31/24 11:17 O2 Del Method Room Air 05/31/24 11:17 BMI result Body Mass Index 31.9 General: AO X 3, no acute distress Resp: CTA bilateral CVS: S1,S2,RRR GI: +BS, NT, no distention Skin: No rash Neuro: motor grossly intact Psych: appropriate affect DS: Data Data Completed and Pending Labs on day of discharge: Laboratory Results - last 24 hr 05/31/24 07:13 Hold Purple Top SEE NOTE Sodium 139 Potassium 4.7 Chloride 109 H Carbon Dioxide 23 Anion Gap 12 BUN 18 H Creatinine 0.90 Estim Creat Clear Calc 107.0 Estimated GFR > 60 Random Glucose 90 Calcium 8.8 Magnesium 1.9 Discharge Plan Discharge Anticipated Discharge Date/Time: 05/31/24 13:15 Patient Disposition: Xfer Acute Care Hospital Discharge Diagnosis: NSVT Referrals: Tram Chi MD [Primary Care Provider] - 1 Week Discharge Medications: New metoprolol tartrate 25 mg Tablet 25 mg PO Q6H Qty: 30 0RF Protocol: Hold for SBP/HR < HOLD for SBP < : 90 HOLD for HR < : 60 Continued famotidine 40 mg tablet 40 mg PO DAILY Qty: 90 1RF cholecalciferol (vitamin D3) 25 mcg (1,000 unit) capsule 25 mcg PO DAILY hydrocortisone [Proctosol HC] 2.5 % cream with perineal applicator 1 appl IA BID-QID PRN (Reason: perineal) atorvastatin 20 mg tablet 20 mg PO DAILY Qty: 90 2RF psyllium husk 0.4 gram capsule 0.4 g PO DAILY chlorpheniramine maleate [Allergy Relief(chlorpheniramn)] 4 mg tablet 4 mg PO Q6H PRN (Reason: Allergic Symptoms) biotin 800 mcg tablet 800 mcg PO DAILY Discharge Orders: Discharge Order (Routine); Ordered 05/31/24 Ordered By: Rajat Grant Diet: Advance to usual diet Activity on Discharge: As tolerated Stand Alone Forms: Patient Portal Discharge page Print Language: Czech Care Plan Goals: recovery and investigaton Health Concerns: Non-sustained ventricular tachycardia, leading to syncope Plan of Treatment: continue Metoprolol to [facility] for EP studies Assessment: see contrast
--- NOTE | 2024-05-31 13:46 | MHC.CM.PN ---
Pt to be transferred to acute care hosp., [facility]
--- NOTE | 2024-05-31 17:41 | P.PNIM_ITS ---
Subjective Subjective Date of Service: 05/31/24 Interval History: f/u on syncope and NSVT intermittent ventricualar tachcardia Physical Exam 2 Vital Signs: Vital Signs: Last Vital Signs Temp 97.8 F 05/31/24 15:16 Pulse 69 05/31/24 15:16 Resp 18 05/31/24 15:16 BP 133/75 05/31/24 15:16 Pulse Ox 94 05/31/24 15:16 O2 Del Method Room Air 05/31/24 15:16 BMI result Body Mass Index 31.9 Const: Other: General: AO X 3, no acute distress Resp: CTA bilateral CVS: S1,S2,RRR GI: +BS, NT, no distention Skin: No rash Neuro: motor grossly intact Psych: appropriate affect Objective Data Active Medications Acetaminophen (Acetaminophen 325 Mg Tablet) 650 mg PO Q6H PRN PRN Reason: Pain, Mild 1-3,fever,headache Last Admin: 05/31/24 12:17 Dose: 650 mg Documented By: SAHIL Atorvastatin Calcium (Atorvastatin Calcium 20 Mg Tablet) 20 mg PO DAILY [facility] Last Admin: 05/31/24 08:36 Dose: 20 mg Documented By: SAHIL Calcium Carbonate (Calcium Carbonate 750 Mg Tab.Chew) 750 mg PO Q4H PRN PRN Reason: Heartburn Enoxaparin Sodium (Enoxaparin Sodium 40 Mg/0.4 Ml Syringe) 40 mg SUBCUT Q24H [facility] Last Admin: 05/31/24 08:36 Dose: 40 mg Documented By: SAHIL Famotidine (Famotidine 20 Mg Tablet) 40 mg PO DAILY [facility] Last Admin: 05/31/24 08:36 Dose: 40 mg Documented By: SAHIL Hydrocortisone (Hydrocortisone 2.5 % Rectal Cr 30 Gm Tube) 1 appl SC QID PRN PRN Reason: perineal Magnesium Hydroxide (Milk Of Magnesia 30 Ml Oral.Susp) 30 ml PO DAILY PRN PRN Reason: Constipation Melatonin (Melatonin 3 Mg Tablet) 6 mg PO BEDTIME PRN PRN Reason: Insomnia Metoprolol Tartrate (Metoprolol Tartrate 25 Mg Tablet) 25 mg PO Q6H [facility]; Protocol Last Admin: 05/31/24 17:33 Dose: 25 mg Documented By: SAHIL Ondansetron HCl (Ondansetron Hcl 4 Mg/2 Ml Vial) 4 mg IVPUSH Q8H PRN PRN Reason: Nausea and Vomiting Sodium Chloride (0.9 % Sodium Chloride Flush 3 Ml Syringe) 3 ml IVFLUSH QSHIFT [facility] Last Admin: 05/31/24 16:27 Dose: 3 ml Documented By: SAHIL Vitamin D (Cholecalciferol (Vitamin D3) 25 Mcg Tablet) 25 mcg PO DAILY [facility] Last Admin: 05/31/24 08:36 Dose: 25 mcg Documented By: SAHIL Labs 05/30/24 04:22 05/31/24 07:13 Labs: Laboratory Results - last 24 hr 05/31/24 07:13 Hold Purple Top SEE NOTE Anion Gap 12 Estim Creat Clear Calc 107.0 Estimated GFR > 60 Random Glucose 90 Calcium 8.8 Magnesium 1.9 Assessment and Plan (1) Ventricular arrhythmia: Status: Acute Plan 53-year-old male with pertinent history of non-Hodgkin's lymphoma in remission, mixed hyperlipidemia, gastroesophageal reflux disease who presented to the emergency department for evaluation after a syncopal episode leading to a fall, found to have intermittent ventricular tachycardia and PVC, orthos negative. QTC normal, potassium and K normal. He was seen by cardiology and was recommended for metoprolol which has reduced PVCs substantially. Echocardiogram show-- - The left ventricular systolic function is normal. The calculated ejection fraction is 56% by biplane method. - Possible basal inferolateral hypokinesis - No obvious valvular pathology seen on this study. Also trying to keep Magnesium at upper limit normal. There is concern for NSVT leading to syncope and therefore cardiology [place] [facility] [place] Acute T6 endplate compression fracture: Conservative management with analgesics p.r.n.. Outpatient follow-up Mixed hyperlipidemia: On statin Gastroesophageal reflux disease: On famotidine DVT prophylaxis: lovenox, maybe [place] later [place] [facility] [place] Stroke Does the patient have a stroke diagnosis?: No VTE Prior VTE?: No VTE Risk Level:: Medical - moderate - high VTE Device Contraindication: Treatment Not Indicated VTE Drug Contraindication: N/A - Med Ordered
[2024-06-01] MEDS: Metoprolol Tartrate 25 MG TABLET PO ×3 (01:05→12:05)
[2024-06-01 03:28] VITALS: BP 102/66; PULSE 69; RESP 18; TEMP 36.3; O2SAT 93
[2024-06-01 05:47] VITALS: BP 117/72; PULSE 67
[2024-06-01 07:00] VITALS: BP 140/83; PULSE 71; RESP 14; TEMP 36.4; O2SAT 97
[2024-06-01] MEDS: Cholecalciferol (Vitamin D3) 25 MCG TABLET PO (08:17)
[2024-06-01] MEDS: Atorvastatin Calcium 20 MG TABLET PO (08:17)
[2024-06-01] MEDS: Famotidine 20 MG TABLET 40 MG PO (08:17)
[2024-06-01] MEDS: 0.9 % Sodium Chloride Flush 3 ML SYRINGE IVFLUSH ×2 (08:17→15:05)
[2024-06-01] MEDS: Enoxaparin Sodium 40 MG/0.4 ML SYRINGE SUBCUT (08:18)
--- NOTE | 2024-06-01 11:29 | PM.PNCARD ---
Subjective Subjective Date of Service: 06/01/24 Interval history: Patient states that he feels better. However, on telemetry he still has short runs of NSVT. Awaiting [facility] transfer. Review of Systems Review of Systems Yes all other systems are reviewed and are negative Constitutional: Reports as per HPI and Reports no additional constitutional complaints Eyes: Reports as per HPI and Denies no additional eye complaints Denies system reviewed and no additional complaints, except as documented and Reports as per HPI Cardiovascular: Reports as per HPI, Reports no additional cardiovascular complaints, Denies acrocyanosis, Denies cool extremities, Denies chest pain, Denies leg edema, Denies lightheadedness, Denies palpitations and Denies dyspnea Respiratory: Reports as per HPI, Denies no additional respiratory complaints and Denies dyspnea Gastrointestinal: Reports as per HPI and Denies no additional gastrointestinal complaints Genitourinary: Reports no additional male genitourinary complaints and Reports as per HPI Musculoskeletal: Reports no additional musculoskeletal complaints and Reports as per HPI Skin/Breast: Reports system reviewed and no additional complaints, except as docu Reports system reviewed and no additional complaints, except as documented and Reports as per HPI Psychiatric: Reports no additional psychiatric complaints and Reports as per HPI Endocrine: Reports no additional endocrine complaints, Reports as per HPI and Denies palpitations Hematologic/Lymphatic: Reports no additional hematologic/lymphatic complaints and Reports as per HPI Allergic/Immunologic: Reports no additional allergic/immunologic complaints and Reports as per HPI Physical Exam Vital Signs: Last Vital Signs Temp 97.6 F 06/01/24 07:00 Pulse 71 06/01/24 07:00 Resp 14 06/01/24 07:00 BP 140/83 H 06/01/24 07:00 Pulse Ox 97 06/01/24 07:00 O2 Del Method Room Air 06/01/24 07:00 BMI result Body Mass Index 31.9 Const General: comfortable and no acute distress Orientation/consciousness: patient oriented x3 HEENT Other: Unremarkable Head: Yes normal to inspection Neck Neck: Yes normal visual inspection Chest Chest palpation & inspection: normal inspection of the chest Resp Auscultation: clear to auscultation bilaterally Cardio Palpation: normal PMI Heart sounds: S1 normal heart sound present, S2 normal heart sound present, no gallops, no murmurs and no rubs GI Palpation (GI): Soft to palpation Back/Spine/Pelvis Other: unremarkable Skin General skin exam: no rashes or lesions noted Neuro General: patient oriented x3 Extrem General: Yes normal to inspection Psych Mental Status: mental status grossly normal Objective Labs and Meds 05/30/24 04:22 05/31/24 07:13 Progress Note: A&P Assessment and plan (1) NSVT (nonsustained ventricular tachycardia): Status: Acute (2) Ventricular arrhythmia: Status: Acute (3) History of diffuse large B-cell lymphoma: Status: Acute (4) Syncope: Status: Acute Plan On telemetry, underlying rhythm is sinus with recurrent runs of NSVT-3-7 beats. Nothing sustained. In in the echocardiogram, suggestion of basal inferolateral hypokinesis but otherwise unremarkable. Has been started on beta-blockers. Plan is to transfer to [facility] for coronary workup-cardiac catheterization versus coronary CTA. Based on availability. Beyond that, may need cardiac MRI. EP consultation. Still awaiting transfer bed. Time Spent With Patient Time: Total time managing care of this patient today ____ minutes. Progress Note: Quality Stroke Does the patient have a stroke diagnosis?: No Procedures Date of Service Date of Service: 06/01/24
[2024-06-01 11:33] VITALS: BP 124/69; PULSE 74; RESP 16; TEMP 36.6; O2SAT 95
[2024-06-01] MEDS: Acetaminophen 325 MG TABLET 650 MG PO (15:04)
[2024-06-01 15:14] VITALS: BP 132/85; PULSE 76; RESP 20; TEMP 36.8; O2SAT 95
== END 2024-06-01 16:30 | disposition short-term general hospital (02) ==
LOC: HO.ED 05-30 02:37 → HO.EDOVER 05-30 03:22 → HO.IMC 05-30 19:56
PROVIDERS: Admitting Provider Student in an Organized Health Care Education/Training Program; Emergency Provider Emergency Medicine Emergency Medical Services; PCP Internal Medicine; Visit Provider Internal Medicine
DX: I47.29 Other ventricular tachycardia (principal); I49.9 Cardiac arrhythmia, unspecified; R55 Syncope and collapse; M48.54XA Collapsed vertebra, not elsewhere classified, thoracic region, initial encounter for fracture; R42 Dizziness and giddiness; H53.8 Other visual disturbances; K21.9 Gastro-esophageal reflux disease without esophagitis; E78.2 Mixed hyperlipidemia; H91.90 Unspecified hearing loss, unspecified ear; Z85.72 Personal history of non-Hodgkin lymphomas; Z79.899 Other long term (current) drug therapy
CPT/HCPCS: 36415; 70450; 71275; 72125; 80048; 80076; 83735; 84484; 85025; 85027; 93005; 93306; 96361; 96365; 96366; 96372; 99222; 99285; J1650; J3475; Q9957; Q9967

== ENCOUNTER → 2024-05-30 00:14 | Outpatient (BNV) | payer MEDICARE, MEDICAID, SELFPAY | PROVIDERS: Emergency Provider Emergency Medicine Emergency Medical Services; PCP Internal Medicine; Visit Provider Radiology Diagnostic Radiology | DX: R55 Syncope and collapse (principal); S09.90XA Unspecified injury of head, initial encounter | CPT/HCPCS: 70450; 71275; 72125 ==

== ENCOUNTER → 2024-05-30 00:14 | Outpatient (BNV) | payer MEDICARE, MEDICAID, SELFPAY | PROVIDERS: Admitting Provider Student in an Organized Health Care Education/Training Program; Emergency Provider Emergency Medicine Emergency Medical Services; PCP Internal Medicine; Visit Provider Internal Medicine Cardiovascular Disease | DX: R94.31 Abnormal electrocardiogram [ECG] [EKG] (principal) | CPT/HCPCS: 93010 ==

== ENCOUNTER 2024-05-30 02:47 | Outpatient (BNV) | payer MEDICARE, MEDICAID, SELFPAY | END 2024-05-31 07:00 | PROVIDERS: Admitting Provider Student in an Organized Health Care Education/Training Program; Emergency Provider Emergency Medicine Emergency Medical Services; PCP Internal Medicine; Visit Provider Internal Medicine | DX: R55 Syncope and collapse (principal) | CPT/HCPCS: 93306 ==

== ENCOUNTER → 2024-05-30 02:47 | Outpatient (BNV) | payer MEDICARE, MEDICAID, SELFPAY | PROVIDERS: Admitting Provider Student in an Organized Health Care Education/Training Program; Emergency Provider Emergency Medicine Emergency Medical Services; PCP Internal Medicine; Visit Provider Internal Medicine Cardiovascular Disease | DX: R55 Syncope and collapse (principal); I49.9 Cardiac arrhythmia, unspecified | CPT/HCPCS: 99223 ==

== ENCOUNTER → 2024-05-30 02:47 | Outpatient (BNV) | payer MEDICARE, MEDICAID, SELFPAY | PROVIDERS: Admitting Provider Student in an Organized Health Care Education/Training Program; Emergency Provider Emergency Medicine Emergency Medical Services; PCP Internal Medicine; Visit Provider Student in an Organized Health Care Education/Training Program | DX: I49.9 Cardiac arrhythmia, unspecified (principal); R55 Syncope and collapse; Z85.72 Personal history of non-Hodgkin lymphomas | CPT/HCPCS: 99222; 99232; 99239; 99499 ==

== ENCOUNTER 2024-06-21 08:13 | Outpatient (AMB) | payer MEDICARE, MEDICAID, SELFPAY ==
--- NOTE | 2024-06-21 08:47 | A.OFFPC_ITS ---
Vital Signs 06/21/24 08:50 Height 5 ft 9 in Weight 217 lb BMI 32.0 BP 112/70 Blood Pressure Location Rt brachial Position Sitting Respiration 18 Pulse 68 Pulse Source Pulse Oximeter Temp 97.5 F Temp Source Oral Pulse Oximetry (%) 96 Oxygen Delivery Method Room Air Intake Visit Reasons: [facility] Intake Note: Pt is here today for his [facility] Allergies silver Allergy (Unknown, Verified 06/21/24 08:58) Rash Penicillins [PENICILLINS] Adverse Reaction (Mild, Verified 06/21/24 08:58) DIARRHEA Medication List - Last Reconciled 06/21/24 by Tram Chi MD atorvastatin 20 mg PO DAILY biotin 800 mcg PO DAILY chlorpheniramine maleate (Allergy Relief (chlorpheniramine)) 4 mg PO Q6H PRN cholecalciferol (vitamin D3) 25 mcg PO DAILY famotidine 40 mg PO DAILY hydrocortisone 2.5% (Proctosol HC) 1 appl CA BID-QID PRN metoprolol succinate ER 12.5 mg PO DAILY psyllium husk 0.4 grams PO DAILY Tobacco use date assessed: 06/21/24 Dental Screening Dental Screen Date: 06/21/24 Did you have a dental visit in the last 12 months?: Yes Did you have a dental problem in the last 6 months where you did not have access to dental care?: No Was dental information given to patient?: Patient has dentist HPI HPI Comments History of Present Illness Details - The patient is a 53-year-old male pres enting today for follow-up after recent admission for syncope and non-sustained ventricular tachycarda, which led to a fall resulting in a compression fracture of the T6 vertebra . Conservative management was advised, with no surgical intervention required unless symptoms worsen. - Comprehensive cardiac evaluations, inc luding a coronary CT scan, cardioMRI, and ECG which revealed the absence of blockages. Attempts for cardiac ablation were made but remained inconclusive due to absent arrhythmias during the procedure. - Current pharmacological interventions include Metoprolol XL and Mexiletine, which were adjusted post-discharge for improved therapeutic effect. - Regular follow-ups with the cardiologi st and scheduled upcoming cardiac monitoring are part of ongoing care. - Recent laboratory evaluation showed no rmal electrolytes and blood sugar levels; cholesterol re-evaluation scheduled for August. [facility] Medical History History of seizure disorder Right hip pain History of diffuse large B-cell lymphoma Hearing impairment Vitamin D deficiency Dyslipidemia B-cell lymphoma Onychomycosis of toenail Surgical History Hx of colonoscopy History of surgery Family History Father Skin cancer Mother Rheumatoid arthritis Dementia Mental health disorder Paternal Grandmother Dementia Paternal Grandfather Heart disease Brother No problems noted. Social History Household Members: Friend(s) Housing: House Do you presently have visiting nurse or other home services: No Alcohol intake: never Patient Tobacco Use Status: Never used Tobacco e-Cigarette/Vaping Use: Never Used Advance Directives Date on File: 06/09/23 service: No Current occupational status: employed Cognitive needs: No Hearing needs: No Vision needs: Yes Questionnaire PHQ-9 Over the last 2 weeks, how often have you been bothered by any of the following problems? 1. Little interest or pleasure in doing things: not at all 2. Feeling down, depressed, or hopeless: not at all 3. Trouble falling or staying asleep, or sleeping too much: not at all 4. Feeling tired or having little energy: not at all 5. Poor appetite or overeating: not at all 6. Feeling bad about yourself - or that you are a failure or have let yourself or your family down: not at all 7. Trouble concentrating on things, such as reading the newspaper or watching television: not at all 8. Moving or speaking so slowly that other people could have noticed. Or the opposite - being so fidgety or restless that you have been moving around a lot more than usual: not at all 9. Thoughts that you would be better off or of hurting yourself in some way: not at all Total score: 0 Source: Developed by Drs. Adam Amaral, Lauren Melvin, Cameron Hein and colleagues, with an educational avila from [employer]. Thrive Questionnaire Date Thrive assessed: 06/20/24 I am a: Patient What is your living situation today?: I have a steady place to live Within the past 12 months, did the food you bought not last and you didn't have the money to get more?: Never true Within the past 12 months, did you worry whether your food would run out before you got money to buy more?: Never true Do you have trouble paying for medicines?: No Do you have trouble getting transportation to medical appointments?: No Do you have trouble paying your heating and electricity bill?: No Do you have trouble taking care of your child, family member or friend?: No Do you have trouble with day-to-day activities such as bathing, preparing meals, shopping, managing finances, etc.?: No Are you currently unemployed and looking for a job?: Yes Are you interested in more education?: Yes Please select the resources that you would like help with: None Currently or been in a relationship where the following occur: No concerns reported THRIVE Score: 0 AUDIT C Alcohol Use Questionnaire (AUDIT-C) 1. How often do you have a drink containing alcohol?: Monthly or less 2. How many drinks containing alcohol do you have on a typical day when you are drinking?: 1 or 2 3. How often do you have six or more drinks on one occasion?: Never Total Score: 1 LINDSEY-7 AMB Questionnaire LINDSEY-7 Date LINDSEY - 7 assessed: 06/21/24 Feeling nervous, anxious, or on edge: 0 = Not at all Not being able to stop or control worryin = Not at all Worrying too much about different things: 0 = Not at all Trouble relaxin = Not at all Being so restless that it is hard to sit still: 0 = Not at all Becoming easily annoyed or irritable: 0 = Not at all Feeling afraid as if something awful might happen: 0 = Not at all Total LINDSEY-7 score (0-4 normal; 5-9 mild; 10-14 moderate; 15-21 severe): 0 Source: Developed by Drs. Adam Amaral, Lauren Melvin, Cameron Hein and colleagues, with an educational avila from [employer]. Review of Systems Const Denies body aches, Denies fever(s) and Denies headache(s) ENT Denies dizziness, Denies headache(s) and Denies nasal congestion Card Denies chest pain, Denies lightheadedness and Denies dyspnea Resp Denies chest congestion, Denies cough and Denies dyspnea GI Denies abdominal pain and Denies change in bowel habits Reports no additional complaints Musc Denies back pain, Denies myalgias, Denies arthralgias, Denies joint swelling, Denies muscle cramps and Denies muscle weakness Neuro Denies dizziness, Denies headache(s) and Denies convulsions Psych Reports no additional complaints Endo Reports no additional complaints Artem/Lymph Reports no additional complaints Physical exam (Primary Care) Vital Signs: Last Vital Signs Temp 97.5 F 06/21/24 08:50 Pulse 68 06/21/24 08:50 Resp 18 06/21/24 08:50 BP 112/70 06/21/24 08:50 Pulse Ox 96 06/21/24 08:50 Oxygen Delivery Method Room Air 06/21/24 08:50 BMI result Body Mass Index 32.0 Tobacco/Smoking Status: Tobacco use Status Tobacco use date assessed 06/21/24 06/21/24 08:54 Patient Tobacco Use Status Never used Tobacco 06/21/24 08:47 e-Cigarette/Vaping Use Never Used 06/21/24 08:47 PHQ-9: PHQ-9 Score PHQ-9: Total score 0 06/21/24 08:59 Thrive Assessment: Date of Thrive Assessment Date Thrive assessed 06/20/24 06/21/24 08:47 Currently or been in a relationship where the following occur: No concerns reported Const General: comfortable, no acute distress and alert Orientation/consciousness: patient oriented x3 [facility] Mouth: Normal oral and palatal mucosa present, oropharynx normal and moist mucous membranes Eyes General: appearance normal, both eyes and all related structures Neck Neck: Yes full ROM, Yes no lymphadenopathy and Yes supple Resp Effort & Inspection: normal respiratory effort and able to speak in complete sentences Auscultation: clear to auscultation bilaterally Cardio Rate: regular rate Rhythm: regular rhythm Heart sounds: S1 normal heart sound present and S2 normal heart sound present GI Palpation (GI): Soft to palpation, nontender and no masses Auscultation: normal bowel sounds Back/Spine/Pelvis Back: No back tenderness Skin General skin exam: no rashes or lesions noted Neuro General: patient oriented x3, gait normal, tone normal, moves all extremities, Normal light touch and pain sensation and no focal motor deficits Cranial nerves: Yes CN's II-XII intact bilaterally Cognition (Neuro): normal cognition Extrem General: Yes full ROM, Yes no joint enlargement, Yes no clubbing, cyanosis or edema and Yes no calf tenderness Coding Level of Care Code Est Pt Level 4 (39093) Complex EM visit Add On G2211 Diagnoses NSVT (nonsustained ventricular tachycardia) I47.29 Fracture, thoracic vertebra, compression S22.000A Dyslipidemia E78.5 Vitamin D deficiency E55.9 Assessment & Plan Assessment & Plan (1) NSVT (nonsustained ventricular tachycardia): Code(s): I47.29 - Other ventricular tachycardia Category: Medical (2) Fracture, thoracic vertebra, compression: Comment: T6 with hx of fall Code(s): S22.000A - Wedge compression fracture of unspecified thoracic vertebra, initial encounter for closed fracture Category: Medical (3) Dyslipidemia: Code(s): E78.5 - Hyperlipidemia, unspecified Category: Medical (4) Vitamin D deficiency: Code(s): E55.9 - Vitamin D deficiency, unspecified Category: Medical Plan Metoprolol XL and Mexiletine continue to manage the patient's ventricular tachycardia, with an emphasis on identifying arrhythmia sources through an anticipated assistant restaurant general manager placement. A follow-up with Dr. Ang is crucial for ongoing evaluation and therapeutic direction. Pain management for the T6 vertebral compression fracture remains conservative; the patient is scheduled for a neurosurgical follow-up without immediate need for surgical intervention. Syncope management includes promoting regular nutritional intake to avoid recurrence associated with fasting. Additionally, continuation on atorvastatin and future cholesterol assessment in August is planned, alongside monitoring of vitamin D levels. Referral to neurosurgery or immediate follow-up care will remain conditional on symptom evolution. Patient was informed and verbally consented to the use of an ambient scribe for clinic note documentation during this visit. Orders: Orders Lipid Panel 08/24/24 E55.9 - Vitamin D deficiency, unspecified, E78.5 - Hyperlipidemia, unspecified Alanine Aminotransferase 08/24/24 E55.9 - Vitamin D deficiency, unspecified, E78.5 - Hyperlipidemia, unspecified Aspartate Amino Transferase 08/24/24 E55.9 - Vitamin D deficiency, unspecified, E78.5 - Hyperlipidemia, unspecified Basic Metabolic Panel Fasting 08/24/24 E55.9 - Vitamin D deficiency, unspecified, E78.5 - Hyperlipidemia, unspecified Vitamin D 25-OH Total 08/24/24 E55.9 - Vitamin D deficiency, unspecified, E78.5 - Hyperlipidemia, unspecified Referrals Neurosurgery Referral S22.000A - Wedge compression fracture of unspecified thoracic vertebra, initial encounter for closed fracture
[2024-06-21 08:50] VITALS: BP 112/70; PULSE 68; RESP 18; TEMP 36.4; O2SAT 96; BMI 32.0
--- OUTSIDE RECORDS SUMMARY | 2024-06-21 12:35 | XMS_ITS ---
Author Organization [facility] [place] [facility] [place] Address [address] [place] [address] Care Team Providers Care Director Business Integration Name Role Phone Alon DAWSON, Tram Heart Primary Care Provider Un available BerkleyEsteban mukherjeeen Unavailable [phone] Allergies Allergen (clinical drug ingredient) Drug/Non Drug Allergy documented on EMR Reaction Allergy Type Onset Date Status nickel Nickel Unknown Allergy Active Penicillin diarrhea Drug Allergy Active REASON FOR VISIT Painful nail(s) aggrevated by shoes causing difficulty standing/walking, Skin problem(s) Medications Medication SIG (Take, Route, Frequency, Duration) Notes Start Date End Date Status Famotidine Maximum Strength 40mg Active Chlorpheniramine Maleate 4 MG 1 tablet as needed Orally every 6 hrs Active Psyllium [id number] Active Proctosol HC 2.5 % 1 application Externally Twice a day Active levETIRAcetam 750 MG 1 tablet Orally every 12 hrs for 30 day(s) Kepro Not-Taking Vitamin C 500 MG as directed Orally Active D3 Adult Active Biotin 1000 MCG 1 tablet Orally Once a day Active Ammonium Lactate 12 % 1 application Externally Twice a day for 30 days Not-Taking Famotidine 40 MG 1 tablet at bedtime Orally Once a day for 30 day(s) Active Vitamin D 25 MCG (1000 UT) 1 tablet Oral ly Once a day Active Atorvastatin Calcium 10 MG 1 tablet Oral ly Once a day Active Social History Tobacco Use: Social History Observation Description Date Details (start date - stop date) Never Smoker NA - NA Tobacco Use/Smoking Question Answer Notes Are you a: nonsmoker Additional Findings: Tobacco Non-User Current no n-smoker Alcohol Screen Question Answer Notes Did you have a drink containing alcohol in the p ast year? No Points 0 Interpretation Negative Tobacco use other than smoking: Question Answer Notes Are you an other tobacco user? No Vital Signs Height 5ft 9in in 04/09/2024 Weight 202.9 lbs 04/09/2024 BMI 29.96 kg/m2 04/09/2024 Encounters Encounter Location Date Provider Diagnosis [facility] [address] [place] [address] 04/09/2024 Nata Hobson Pain in right toe(s) M79.674 ; Tinea unguium B35.1 ; Pain in left toe(s) M79.675 and Xerosis of skin L85.3 Assessments Encounter Date Diagnosis (ICD Code) Assessment Notes Treatment Notes Treatment Clinical Notes Section Notes 04/09/2024 Pain in right toe(s) (ICD-10 - M79.674) 04/09/2024 Tinea unguium (ICD-10 - B35.1) 04/09/2024 Pain in left toe(s) (ICD-10 - M79.675) 04/09/2024 Xerosis of skin (ICD-10 - L85.3) Plan Of Treatment Next Appt Details Follow Up: 2 Months, Reason: Provider Name:Nata mukherjee, 07/06/2024 03:00:00 PM, [address] [place] [address], [address], Procedure Notes * Category Sub-Category Detail Notes Debride Nails 1-5 Procedure: Nail debrideme nt performed extensively to reduce/remove overall nail length and girth, subungual debris, and necrotic tissue, by manual and electrical means by use of a nail nipper and/or dremel, to more viable healthy nail plate or bed tissue 1-5. Silver nitrate used for any petechial bleeding as necessary. Patient chooses, no pharmaceutical tx (40734) Progress Notes * Rony NINO CDOB:1970 (53 yo M)Acc No.[id number]:04/09/2024 Progress Note Patient:?Rony NINO Provider:?Nata Hobosn DPM :1970???Age:53 Y???Sex:Male Son e:04/09/2024 Address:[address] [place] [address] [phone] Pcp:Charleen Luciano Subjective: * Chief Complaints: * ???Painful nail(s) aggrevate d by shoes causing difficulty standing/walkingSkin problem(s) * HPI: ???Painful Nails:?Pt States Last PCP Visit:?Date:?12/24/2023 ???Skin problems:?Nature:?dryness , scaling.?Location:?B/L .?Duration:?several days.?Course:?worse.? * ROS:?General/Constitutional:?Nausea?denies.?Vomiting?denies.?Hunger Thirst?denies.?Loss appetite?denies.?Chills?denies.?Fatigue?denies.?Fever?denies.?Night Sweats?denies.?Unexplained weight loss?denies.?Unexplained weight gain?denies.?HEENTM:?Dentures?denies.?Dizziness?denies.?Glasses/contacts?admits.?Retinopathy?de nies.?Blurred/double vision?denies.?TMJ?denies.?Discharge/drainage?denies.?Implants?denies.?Sore throat?denies.?Dental implants?denies.?Hard of hearing ?denies.?Difficulty chewing/swallowing/speaking?denies.?Nose bleeds?denies.?Sore mouth?denies.?Respiratory:?On Oxygen?denies.?Pneumonia/pleurisy?denies.?Bronchitis?denies.?Emphysema?denies.?C oughing?denies.?Cough blood?denies.?Shortness of breath?denies.?Wheezing?denies.?Cardiovascular:?Pacemaker?denies.?MVP?denies.?WPW?denies.?CHF?denies.?Heart attack?denies.?Septal defect?denies.?Rapid beat?denies.?Chest pain ?denies.?Atrial Fib.?denies.?Murmur/Palpitations?denies.?Gastrointestinal:?Hemorrhoids?denies.?Stomach/Abdominal pain?denies.?Dark blood stool?denies.?Irritable bowel ?denies.?Constipation?denies.?Diarrhea?denies.?Hematology:?Swelling?admits.?Clots?denies.?Varicose Veins?denies.?Bruising?denies.?Bleeding problem?denies.?Genitourinary:?Blood urine?denies.?Frequent/Painfu/urination/bladder control?denies.?Kidney stones?denies.?Infection (UTI)?denies.?Nephropathy?denies.?sex trans dis (STD)?denies.?Prostate?denies.?Musculoskeletal:?Hammertoes?denies.?Bunions?denies.?Back Pain?denies.?Muscle Cramps/ Resting?denies.?Muscle cramps / walking?denies.?Generalized aches and pains?denies.?Weakness?denies.?Integ.:?Miller?denies.?Scars?denies.?Corns/calluses?admits.?Ingrown nails?denies.?Painful nails?denies.?Open Sores?denies.?Rashes?denies.?Neurologic:?Difficulty sleeping?denies.?Brain disorder?denies.?Numbness?denies.?Balance trouble?denies.?Confusion?denies.?Fainting/blackouts?denies.?Tingling?denies.?Tr emors?denies.? * Medical History:? * Surgical History:?medical po rt put in bypass surgery for cancer - renal glands colonoscopy sinus surgery biopsys - adrenal glands spinal tap - 1 possibly 2 * Hospitalization/Major Diagno stic Procedure:?Denies Past Hospitalization * Family History:?Mother: alan e, arthritis.?Father: alive, heart attack.?Paternal Grand Father: heart attack.? * Social History:?Tobacco Use:?Tobacco Use/Smoking?Are you a:?nonsmoker ?Additional Findings: Tobacco Non-User?Current non-smoker ?Tobacco use other than smoking?Are you an other tobacco user??No ???Drugs/Alcohol:?Drugs?Have you used drugs other than those for medical reasons in the past 12 months??No ?Alcohol Screen?Did you have a drink containing alcohol in the past year??No ?Points?0 ?Interpretation?Negative ???Miscellaneous:?Caffeine: no, none. ?Children: no. ?Exercise: yes, light exercise five days a week. ?Marital status: single. ?Occupation: Works Full-time- [employer]. * Medications:?TakingProctosol HC 2.5 % Cream 1 application Externally Twice a day Psyllium , Notes to Pharmacist: [id number] Maleate 4 MG Tablet 1 tablet as needed Orally every 6 hrs Famotidine Maximum Strength , Notes to Pharmacist: 40mgAtorvastatin Calcium 10 MG Tablet 1 tablet Orally Once a day Vitamin D 25 MCG (1000 UT) Tablet 1 tablet Orally Once a day Vitamin C 500 MG Capsule as directed Orally Biotin 1000 MCG Tablet 1 tablet Orally Once a day D3 Adult Famotidine 40 MG Tablet 1 tablet at bedtime Orally Once a day Taking Proctosol HC 2.5 % Cream 1 application Externally Twice a day Taking Psyllium , Notes to Pharmacist: [id number] Chlorpheniramine Maleate 4 MG Tablet 1 tablet as needed Orally every 6 hrs Taking Famotidine Maximum Strength , Notes to Pharmacist: 40mgTaking Atorvastatin Calcium 10 MG Tablet 1 tablet Orally Once a day Taking Vitamin D 25 MCG (1000 UT) Tablet 1 tablet Orally Once a day Taking Vitamin C 500 MG Capsule as directed Orally Taking Biotin 1000 MCG Tablet 1 tablet Orally Once a day Taking D3 Adult Taking Famotidine 40 MG Tablet 1 tablet at bedtime Orally Once a day Not- Taking/PRNAmmonium Lactate 12 % Cream 1 application Externally Twice a day levETIRAcetam 750 MG Tablet 1 tablet Orally every 12 hrs , Notes to Pharmacist: KeproMedication List reviewed and reconciled with the patientNot-Taking/PRN Ammonium Lactate 12 % Cream 1 application Externally Twice a day Not-Taking/PRN levETIRAcetam 750 MG Tablet 1 tablet Orally every 12 hrs , Notes to Pharmacist: KeproMedication List reviewed and reconciled with the patient * Allergies:?Penicillin: reuben Henderson[Allergies Verified] Objective: * Vitals:?Ht: 5ft 9in, Wt:202. 9, BMI:29.96, Shoe size: 11-11.5W, Ht-cm: 175.26 cm, Wt-k.03 kg. * Examination: ???Nails: ?NAILS are:?Elongated, overgrown, dystrophic, lytic, greater than 3mm thick, discolored and friable with crumbly malodorous subungual debris, with pain on palpation, TA, T5.?Vascular: ?DP PULSES(B):?3/4, B/L.?PT PULSES(B):?3/4, B/L.?CAPILLARY FILL TIME:?immediate, all digits, B/L.?Neurological: ?SENSORY:?Neurological exam reveals intact sensorium, pain sensation normal, vibration sensation intact, pinprick sensation is normal in the lower extremities, Pt denies, anesthesia, burning, paresthesia, tingling, B/L.?Dermatologic: ?SKIN FINDINGS:?Skin shows sign(s) of, dryness, scaling, in a stocking fashion, no fissure(s) present, B/L.? Assessment: * Assessment: 1.?Pain in right toe(s) - M7 9.674???2.?Tinea unguium - B35.1 (Primary)???3.?Pain in left toe(s) - M79.675???4.?Xerosis of skin - L85.3???Specify :Acute problem, Uncomplicated (3),Rx Management (4)??? Plan: * Treatment: * Procedures:?Debride Nails 1-5:?Procedure:?Nail debridement performed extensively to reduce/remove overall nail length and girth, subungual debris, and necrotic tissue, by manual and electrical means by use of a nail nipper and/or dremel, to more viable healthy nail plate or bed tissue 1-5. Silver nitrate used for any petechial bleeding as necessary. Patient chooses, no pharmaceutical tx (68814).? * Procedure Codes:?74563 LI WILDER, 1-5, Modifiers: XS * Preventive Medicine:? ??Counseling:?Discussion:?-12: Office or other outpatient visit for the evaluation and management of an established patient, which required a medically appropriate history and/or examination and STRAIGHTFORWARD level of MEDICAL DECISION MAKING, 1 SELF-LIMITED OR MINOR PROBLEM, MINIMAL- NO AMOUNT/COMPLEXITY OF DATA TO BE REVIEWED/ANALYZED, AND MINIMAL RISK OF COMPLICATION/MORBIDITY. The visit on the day of the encounter encompassed interpreting the data and educating the patient as to the nature of their condition, treatment options available according to their individual PMH, meds, allergies, and overall health/living conditions, as well as any potential risks or complications that may occur from a failure to adhere to, and participate in, the recommended course of therapy. The discussion included a complete verbal, and/or written explanation of the examination results, any x-rays taken, the proposed diagnosis, and outline of the treatment plan. A schedule for future care needs was also explained. The patient verbalized an understanding of the instructions at this time and agreed to be an active participant in their treatment. If the patient should think of any questions or concerns after the visit, I have encouraged the patient to call the office.?Xerosis:?The patient was counseled on the diagnosis, potential etiologies, and treatment options for their skin condition. We discussed the risks and benefits of each option from performing no treatment, to utilizing OTC topical skin creams/ointments, to utilizing prescription topical creams/ointments, to utilizing customized compounded topical medications and use of nocturnal occlusion with any/all previously detailed therapies. We discussed the advantages and disadvantages of each possible treatment and importance for adherence to all the recommended therapies for optimum success and avoid potential complications such as open sore/infection/possible hospitalization. We discussed the potential effectiveness of each topical preparation as well as each ones possible side effects and/or patient medication interactions. Patient questions re: use, dosage, successful outcomes, and application consistency were reviewed and the patient verbalized that all answers were clearly understood..? * Follow Up:?2 Months * Images: * Sign off status: Completed true * Provider:?Nata Hobson DPM Date:? Generated for Sean fitzgerald/Mindy/Dudley on:?06/21/2024 12:33 PM EST History and Physical Notes * HPI (History of Present Illness) Category Sub-Category Detail Notes Category Not es Painful Nails Pt States Last PCP Visit: Date:: 12/24/2023 Skin problems Nature: dryness , scaling Location: B/L Duration: several days Course: worse Examination Category Sub-Category Detail Notes Category Not es Neurological SENSORY: Neurological exa m reveals intact sensorium, pain sensation normal, vibration sensation intact, pinprick sensation is normal in the lower extremities, Pt denies, anesthesia, burning, paresthesia, tingling, B/L Dermatologic SKIN FINDINGS: Skin shows sign( s) of, dryness, scaling, in a stocking fashion, no fissure(s) present, B/L Vascular DP PULSES (B): 3/4, B/L PT PULSES (B): 3/4, B/L CAPILLARY FILL TIME: immediate, all digi ts, B/L Nails NAILS are: Elongated, overg rown, dystrophic, lytic, greater than 3mm thick, discolored and friable with crumbly malodorous subungual debris, with pain on palpation, TA, T5
--- OUTSIDE RECORDS SUMMARY | 2024-06-21 12:35 | XMS_ITS | Patient Health Record ---
Author Organization [facility] Address [address] [facility] [place] [address] Care Team Providers Care Timber Management Specialist Name Role Phone Alon DAWSON, Tram Heart Primary Care Provider Un available Nata Hobson Unavailable [phone] Allergies Allergen (clinical drug ingredient) Drug/Non Drug Allergy documented on EMR Reaction Allergy Type Onset Date Status nickel Nickel Unknown Allergy Active Penicillin diarrhea Drug Allergy Active Reason For Referral No Information Medications Medication SIG (Take, Route, Frequency, Duration) Notes Start Date End Date Status Famotidine Maximum Strength 40mg Active Chlorpheniramine Maleate 4 MG 1 tablet as needed Orally every 6 hrs Active Vitamin D 25 MCG (1000 UT) 1 tablet Oral ly Once a day Active Atorvastatin Calcium 10 MG 1 tablet Oral ly Once a day Active Vitamin C 500 MG as directed Orally Active D3 Adult Active Biotin 1000 MCG 1 tablet Orally Once a day Active Ammonium Lactate 12 % 1 application Externally Twice a day for 30 days Not-Taking Famotidine 40 MG 1 tablet at bedtime Orally Once a day for 30 day(s) Active Psyllium 360nwv6 Active Proctosol HC 2.5 % 1 application Externally Twice a day Active levETIRAcetam 750 MG 1 tablet Orally every 12 hrs for 30 day(s) Kepro Not-Taking Immunizations Vaccine Route Administration Date Status Comme nts COVID-19 Pfizer BioNTech Vaccine Unknown 12/12/2021 Administered First Dose: 09/10/2020 Second Dose: 10/04/2020 Social History Tobacco Use: Social History Observation [...] 04/09/2024 Encounters Encounter Location Date Provider Diagnosis [address] [address] 08/12/2023 Nata Perica Xerosis of skin L85.3 ; Pain in right toe(s) M79.674 ; Pain in left toe(s) M79.675 and Tinea unguium B35.[address] [address] 10/21/2023 Nata Perica Pain in right toe(s) M79.674 ; Tinea unguium B35.1 and Pain in left toe(s) M79.[address] [address] 01/13/2024 Nata Perica Pain in right toe(s) M79.674 ; Tinea unguium B35.1 and Pain in left toe(s) M79.[address] [address] 04/09/2024 Nata Perica Pain in right toe(s) M79.674 ; Tinea unguium B35.1 ; Pain in left toe(s) M79.675 and Xerosis of skin L85.[address] [address] 07/02/2023 Nata Perica [address] [address] 07/15/2023 Nata Perica [address] [address] 03/11/2024 Nata Perica Assessments Encounter Date Diagnosis (ICD Code) Assessment Notes Treatment Notes Treatment Clinical Notes Section Notes 10/21/2023 Tinea unguium (ICD-10 - B35.1) 10/21/2023 Pain in right toe(s) (ICD-10 - M79.674) 04/09/2024 Pain in right toe(s) (ICD-10 - M79.674) 01/13/2024 Pain in right toe(s) (ICD-10 - M79.674) 08/12/2023 Xerosis of skin (ICD-10 - L85.3) 04/09/2024 Tinea unguium (ICD-10 - B35.1) 08/12/2023 Pain in right toe(s) (ICD-10 - M79.674) 10/21/2023 Pain in left toe(s) (ICD-10 - M79.675) 01/13/2024 Tinea unguium (ICD-10 - B35.1) 08/12/2023 Pain in left toe(s) (ICD-10 - M79.675) 01/13/2024 Pain in left toe(s) (ICD-10 - M79.675) 04/09/2024 Pain in left toe(s) (ICD-10 - M79.675) 04/09/2024 Xerosis of skin (ICD-10 - L85.3) 08/12/2023 Tinea unguium (ICD-10 - B35.1) Plan Of Treatment Next Appt Details Provider Name:Nata mukherjee, 07/06/2024 03:00:00 PM, [address] [place] [address], [place], [address], Insurance Providers Payer Name Payer Address Payer Phone Subscriber Number Group Number Insured Name Patient Relationship to Insured Coverage Start Date Coverage End Date Medicare National Govt Sv[employer] [address] [place] [address] [phone] [id number] Rony Guidry Self - patient is the insured Medical (General) History Medical History History ICD Code Cancer lymphoma Epilepsy Warts Foot problems Surgical History Surgery Date(Month/Year) medical port put in bypass surgery for cancer - renal glands colonoscopy sinus surgery biopsys - adrenal glands spinal tap - 1 possibly 2
--- OUTSIDE RECORDS SUMMARY | 2024-06-21 12:36 | XMS_ITS ---
Author Organization [facility] Address [address] [place] [address] Care Team Providers Care Lease Operator Name Role Phone Alon DAWSON, Tram Heart Primary Care Provider Un available Nata Hobson Unavailable [phone] Encounters Encounter Location Date Provider Diagnosis [facility] [address] [place] [address] 04/06/2024 Nata Hobson Plan Of Treatment Next Appt Details Provider Name:Nata mukherjee, 07/06/2024 03:00:00 PM, [address] [place], [address], Progress Notes * Rony NINO CDOB:1970 (53 yo M)Acc No.[id number]:04/06/2024 Progress Note Patient:?Rony NINO Provider:?Nata Hobson DPM :1970???Age:53 Y???Sex:Male Son e:04/06/2024 Address:[address] [place] [address] Pcp:Charleen Luciano Subjective: * Chief Complaints: * ??? * Medical History:? Objective: * Vitals:? Assessment: Plan: * Treatment: * Images: * The named appointment provid er may or may not be the originator of this progress note, and it is not deemed complete until electronically signed by the appointment provider. Sign off status: Pending * Provider:?Nata Hobson DPM Date:?04/2024 Generated for Sean fitzgerald/Mindy/Dudley on:?06/21/2024 12:33 PM EST
--- OUTSIDE RECORDS SUMMARY | 2024-06-21 12:36 | XMS_ITS ---
Author Organization [facility] Address [address] [place] [address] Care Team Providers Care Steel Grinder Name Role Phone Alon DAWSON, Tram Heart Primary Care Provider Un available Nata Hobson Unavailable [phone] REASON FOR VISIT r/s 04/06 Encounters Encounter Location Date Provider Diagnosis [facility] [address] [place] [address] 03/11/2024 Nata Hobson Plan Of Treatment Next Appt Details Provider Name:Nata mukherjee, 07/06/2024 03:00:00 PM, [address] [place], [address], Progress Notes * Rony NINO CDOB:1970 (53 yo M)Acc No.[id number]:03/11/2024 Patient:?Rony Nino :1970???Age:53 Y???Sex:Male Address:[address] [place] [address], [address] * true * Date:? Generated for Printi amilcar/Mindy/eTransmitting on:?06/21/2024 12:33 PM EST
== END 2024-06-21 09:25 | disposition home or self-care (01) ==
PROVIDERS: PCP Internal Medicine; Visit Provider Internal Medicine
DX: I47.29 Other ventricular tachycardia (principal); S22.000A Wedge compression fracture of unspecified thoracic vertebra, initial encounter for closed fracture; E78.5 Hyperlipidemia, unspecified; E55.9 Vitamin D deficiency, unspecified

== ENCOUNTER → 2024-06-21 08:13 | Outpatient (BNVA) | payer MEDICARE, MEDICAID, SELFPAY | PROVIDERS: PCP Internal Medicine; Visit Provider Internal Medicine | DX: I47.19 Other supraventricular tachycardia (principal); E78.5 Hyperlipidemia, unspecified; E55.9 Vitamin D deficiency, unspecified; S22.000D Wedge compression fracture of unspecified thoracic vertebra, subsequent encounter for fracture with routine healing | CPT/HCPCS: 99212 ==

== ENCOUNTER 2024-10-05 06:53 | Outpatient (REF) | payer OTHER, SELFPAY ==
--- OUTSIDE RECORDS SUMMARY | 2024-10-05 06:56 | XMS_ITS | Patient Health Record ---
Author Organization [facility] Address [address] [facility] [place] [address] Care Team Providers Care Nursery Technician Name Role Phone Alon DAWSON, Tram Heart Primary Care Provider Un available Nata Hobson Unavailable [phone] Allergies Allergen (clinical drug ingredient) Drug/Non Drug [...] a day for 30 day(s) Active Psyllium [id number] Active Proctosol HC 2.5 % 1 application [...] 04/09/2024 Encounters Encounter Location Date Provider Diagnosis [address] [address] 10/21/2023 Nata Perica Pain in right toe(s) M79.674 ; Tinea unguium B35.1 and Pain in left toe(s) M79.[address] [address] 01/13/2024 Nata Perica Pain in right toe(s) M79.674 ; Tinea unguium B35.1 and Pain in left toe(s) M79.[address] [address] 04/09/2024 Nata Perica Pain in right toe(s) M79.674 ; Tinea unguium B35.1 ; Pain in left toe(s) M79.675 and Xerosis of skin L85.[address] [address] 03/11/2024 Nata Perica [address] [address] 06/30/2024 Nata Perica Assessments Encounter Date Diagnosis (ICD Code) Assessment Notes Treatment Notes Treatment Clinical Notes Section Notes 10/21/2023 Tinea unguium (ICD-10 - B35.1) 10/21/2023 Pain in right toe(s) (ICD-10 - M79.674) 01/13/2024 Pain in right toe(s) (ICD-10 - M79.674) 04/09/2024 Pain in right toe(s) (ICD-10 - M79.674) 04/09/2024 Tinea unguium (ICD-10 - B35.1) 10/21/2023 Pain in left toe(s) (ICD-10 - M79.675) 01/13/2024 Tinea unguium (ICD-10 - B35.1) 01/13/2024 Pain in left toe(s) (ICD-10 - M79.675) 04/09/2024 Pain in left toe(s) (ICD-10 - M79.675) 04/09/2024 Xerosis of skin (ICD-10 - L85.3) Plan Of Treatment No Information Insurance Providers Payer Name Payer Address Payer Phone Subscriber Number Group Number Insured Name Patient Relationship to Insured Coverage Start Date Coverage End Date Medicare National Govt Svcs Inc [address] [place] [address] [id number] Rony Gudiry Self - patient is the insured Medical (General) History Medical History History ICD Code Cancer lymphoma Epilepsy Warts Foot problems Surgical History Surgery Date(Month/Year) medical port put in bypass surgery for cancer - renal glands colonoscopy sinus surgery biopsys - adrenal glands spinal tap - 1 possibly 2
--- OUTSIDE RECORDS SUMMARY | 2024-10-05 06:56 | XMS_ITS ---
Author Organization [facility] [place] Address [address] [place] [address] Care Team Providers Care Arranger Assembler Name Role Phone Alon DAWSON, Tram Heart Primary Care Provider Un available BerkleyEsteban mukherjeeen Unavailable [phone] Allergies Allergen (clinical drug ingredient) Drug/Non Drug [...] needed Orally every 6 hrs Active Psyllium [id number] Active Proctosol HC 2.5 % 1 application [...] 04/09/2024 Encounters Encounter Location Date [facility] [address] [place] [address] 04/09/2024 Nata Hobson Pain in right toe(s) [...] Appt Details Follow Up: 2 Months, Reason: Procedure Notes * Category Sub-Category Detail Notes [...] as necessary. Patient chooses, no pharmaceutical tx (28897) Progress Notes * Rony NINO CDOB:1970 (53 yo M)Acc No.[id number]:04/09/2024 Progress Note Patient:?Rony NINO Provider:?Nata Hobson DPM :1970???Age:53 Y???Sex:Male Son e:04/09/2024 Address:[address] [place] [address] Pcp:Charleen Luciano Subjective: * Chief Complaints: * [...] stic Procedure:?Denies Past Hospitalization * Family History:?Mother: aliv e, arthritis.?Father: alive, heart attack.?Paternal Grand Father: [...] week. ?Marital status: single. ?Occupation: Works Full-time- [employer]. * Medications:?TakingProctosol HC 2.5 % Cream 1 application Externally Twice a day Psyllium , Notes to Pharmacist: [id number] Maleate 4 MG Tablet 1 tablet as [...] day Taking Psyllium , Notes to Pharmacist: [id number] Chlorpheniramine Maleate 4 MG Tablet 1 tablet [...] as necessary. Patient chooses, no pharmaceutical tx (33115).? * Procedure Codes:?83529 LI WILDER, 1-5, Modifiers: XS * Preventive [...] Hobson DPM Date:? Generated for Sean fitzgerald/Mindy/Dudley on:?10/05/2024 06:55 AM EDT History and Physical Notes * HPI (History [...]
--- OUTSIDE RECORDS SUMMARY | 2024-10-05 06:56 | XMS_ITS ---
Author Organization [facility] Address [address] [place] [address] Care Team Providers Care Telephone Mechanic Name Role Phone Alon DAWSON, Tram Heart Primary Care Provider Un available Nata Hobson Unavailable [phone] Encounters Encounter Location Date Provider Diagnosis [facility] [address] [place] [address] 07/06/2024 Nata Hobson Plan Of Treatment No Information Progress Notes * Rony NINO CDOB:1970 (54 yo M)Acc No.[id number]:07/06/2024 Progress Note Patient:?NINORony Provider:?Nata Hobson DPM :1970???Age:53 Y???Sex:Male Son e:07/06/2024 Address:[address] [place] [phone] Pcp:Charleen Luciano Subjective: * Chief Complaints: * ??? * Medical History:? Objective: * Vitals:? Assessment: Plan: * Treatment: * Images: * The named appointment provid er may or may not be the originator of this progress note, and it is not deemed complete until electronically signed by the appointment provider. Sign off status: Pending * Provider:?Nata Hobson DPM Date:?03/2025 Generated for Sean fitzgerald/Mindy/eTransmitting on:?10/05/2024 06:56 AM EDT
--- OUTSIDE RECORDS SUMMARY | 2024-10-05 06:56 | XMS_ITS ---
Author Organization [facility] Address [address] [place] [address] Care Team Providers Care Slope Hoist Operator Name Role Phone Alon DAWSON, Tram Heart Primary Care Provider Un available Nata Hobson Unavailable [phone] REASON FOR VISIT cx 07/06 Encounters Encounter Location Date Provider Diagnosis [facility] [address] [place] [address] 06/30/2024 Nata Hobson Plan Of Treatment No Information Progress Notes * Rony NINO CDOB:1970 (53 yo M)Acc No.[id number]:06/30/2024 Patient:?Rony NINO :1970???Age:53 Y???Sex:Male Address:[address] [place] [address], [address] * true * Date:? Generated for Printi ng/Fagenog/eTransmitting on:?10/05/2024 06:56 AM EDT
[2024-10-05 10:46] LABS: Alanine Aminotransferase 24 U/L (0-40); Anion Gap 15 (12-20); Aspartate Amino Transferase 31 U/L (5-37); Blood Urea Nitrogen 14 mg/dL (9-16); Carbon Dioxide 26 mmol/L (22-29); Chloride 106 mmol/L (96-108); Cholesterol 160 mg/dL (<200); Estimated Glomerular Filt Rate > 60; Glucose Fasting 79 mg/dL (60-99); HDL Cholesterol 56 mg/dL (>40); LDL Cholesterol Calculated 85 mg/dL (<100); Potassium 3.5 mmol/L (3.3-5.1); Sodium 143 mmol/L (135-145); Triglycerides 99 mg/dL (<150)
[2024-10-05 11:11] LABS: Vitamin D 25-OH Total 55.4 ng/mL (>30)
== END 2024-10-05 06:54 | disposition home or self-care (01) ==
LOC: HO.HMGCLDS 06:53
PROVIDERS: PCP Internal Medicine; Visit Provider Internal Medicine
DX: E55.9 Vitamin D deficiency, unspecified (principal); E78.5 Hyperlipidemia, unspecified
CPT/HCPCS: 36415; 80048; 80061; 82306; 84450; 84460

== ENCOUNTER 2024-10-07 11:03 | Outpatient (AMB) | payer MEDICAID, SELFPAY ==
[2024-10-07 11:35] VITALS: BP 130/80; PULSE 95; RESP 16; TEMP 36.7; O2SAT 96; BMI 29.5
--- NOTE | 2024-10-07 11:35 | A.OFFPC_ITS ---
Vital Signs 10/07/24 11:35 Height 5 ft 9 in Weight 200 lb BMI 29.5 BP 130/80 Blood Pressure Location Lt brachial Position Sitting Respiration 16 Pulse 95 Pulse Source Pulse Oximeter Temp 98.1 F Temp Source Oral Pulse Oximetry (%) 96 Oxygen Delivery Method Room Air Intake Visit Reasons: f/u labs Intake Note: Pt is here today for his f/u labs Allergies silver Allergy (Unknown, Verified 10/07/24 11:51) Rash Penicillins [PENICILLINS] Adverse Reaction (Mild, Verified 10/07/24 11:51) DIARRHEA Medication List - Last Reconciled 10/07/24 by Tram Chi MD atorvastatin 20 mg PO DAILY biotin 1,000 mcg PO DAILY chlorpheniramine maleate (Allergy Relief (chlorpheniramine)) 4 mg PO Q6H PRN cholecalciferol (vitamin D3) 25 mcg PO DAILY famotidine 40 mg PO DAILY hydrocortisone 2.5% (Proctosol HC) 1 appl NM BID-QID PRN metoprolol succinate ER 12.5 mg PO DAILY mexiletine 150 mg PO BID psyllium husk 0.4 grams PO DAILY Tobacco use date assessed: 10/07/24 Dental Screening Dental Screen Date: 10/07/24 Did you have a dental visit in the last 12 months?: Yes Did you have a dental problem in the last 6 months where you did not have access to dental care?: No Was dental information given to patient?: Patient has dentist HPI f/u labs HPI Details Rony is here today for follow-up on his lipids and fasting glucose. He states that he has been off his diet, has been eating left over Calzones from work. His recent fasting labs however showed fasting lipids, electrolytes, liver enzymes and lipids as well as vitamin-D levels now within normal limits He is currently taking atorvastatin 20 mg daily and stays active. Complains of pain and swelling on tip of left 4th toe. Patient states that he stubbed it against some furniture a week ago. Pain has started to subside and is no longer limping. History of ventricular arrhythmia, currently controlled on mexiletine and metoprolol succinate, followed by cardiology [facility] Medical History (Updated 10/07/24 @ 12:03 by Tram Chi MD) History of B-cell lymphoma History of vitamin D deficiency History of seizure disorder History of diffuse large B-cell lymphoma Hearing impairment Dyslipidemia Onychomycosis of toenail Surgical History Hx of colonoscopy History of surgery Family History Father Skin cancer Mother Rheumatoid arthritis Dementia Mental health disorder Paternal Grandmother Dementia Paternal Grandfather Heart disease Brother No problems noted. Social History Household Members: Friend(s) Housing: House Do you presently have visiting nurse or other home services: No Alcohol intake: never Patient Tobacco Use Status: Never used Tobacco e-Cigarette/Vaping Use: Never Used Advance Directives Date on File: 06/09/23 service: No Current occupational status: employed Cognitive needs: No Hearing needs: No Vision needs: Yes Questionnaire Thrive Questionnaire Date Thrive assessed: 06/20/24 I am a: Patient What is your living situation today?: I have a steady place to live Within the past 12 months, did the food you bought not last and you didn't have the money to get more?: Never true Within the past 12 months, did you worry whether your food would run out before you got money to buy more?: Never true Do you have trouble paying for medicines?: No Do you have trouble getting transportation to medical appointments?: No Do you have trouble paying your heating and electricity bill?: No Do you have trouble taking care of your child, family member or friend?: No Do you have trouble with day-to-day activities such as bathing, preparing meals, shopping, managing finances, etc.?: No Are you currently unemployed and looking for a job?: Yes Are you interested in more education?: Yes Please select the resources that you would like help with: None Currently or been in a relationship where the following occur: No concerns reported THRIVE Score: 0 LINDSEY-7 AMB Questionnaire LINDSEY-7 Date LINDSEY - 7 assessed: 06/21/24 Source: Developed by Drs. Adam Amaral, Lauren Melvin, Cameron Hein and colleagues, with an educational avila from [employer]. Review of Systems Const All systems reviewed & are unremarkable except as noted in HPI and below Physical exam (Primary Care) Vital Signs: Last Vital Signs Temp 98.1 F 10/07/24 11:35 Pulse 95 10/07/24 11:35 Resp 16 10/07/24 11:35 BP 130/80 10/07/24 11:35 Pulse Ox 96 10/07/24 11:35 Oxygen Delivery Method Room Air 10/07/24 11:35 BMI result Body Mass Index 29.5 Tobacco/Smoking Status: Tobacco use Status Tobacco use date assessed 10/07/24 10/07/24 11:36 Patient Tobacco Use Status Never used Tobacco 10/07/24 11:36 e-Cigarette/Vaping Use Never Used 10/07/24 11:36 Thrive Assessment: Date of Thrive Assessment Date Thrive assessed 06/20/24 10/07/24 11:36 Currently or been in a relationship where the following occur: No concerns reported Const General: comfortable, no acute distress and alert Orientation/consciousness: patient oriented x3 HENMT Mouth: Normal oral and palatal mucosa present, oropharynx normal and moist mucous membranes Eyes General: appearance normal, both eyes and all related structures Neck Neck: Yes full ROM, Yes no lymphadenopathy and Yes supple Resp Effort & Inspection: normal respiratory effort and able to speak in complete sentences Auscultation: clear to auscultation bilaterally Cardio Rate: regular rate Rhythm: regular rhythm Heart sounds: S1 normal heart sound present and S2 normal heart sound present GI Palpation (GI): Soft to palpation, nontender and no masses Auscultation: normal bowel sounds Back/Spine/Pelvis Back: No back tenderness Skin General skin exam: no rashes or lesions noted Neuro General: patient oriented x3, gait normal, tone normal, moves all extremities, Normal light touch and pain sensation and no focal motor deficits Cranial nerves: Yes CN's II-XII intact bilaterally Cognition (Neuro): normal cognition Gait exam (Neuro): Normal gait present Extrem Other: Slight swelling and erythema on tip of left 4th toe, area slightly tender to palpation but there is full range of motion of the toe, General: Yes full ROM and Yes no calf tenderness Results Reviewed Results Reviewed: naye: Rony Guidry Age/Sex: 54/M : 1970 Unit#: [id number] Attend Dr: Tram Chi MD Re10/05/24 Status: DEP REF Location: [facility] Disch: SPEC : [id number] BRISEYDA: 10/05/24 STATUS: COMP REQ : [id number] RECD: 10/05/24-[address]: Tram Chi MD COMP: 10/05/24-1110 ENTERED: 10/05/[address]: ORDERED: Met Prof Fast, AST, ALT, Lipid Panel, Vitamin D 25-OH Test Result Flag Reference Sodium 143 135-145 mmol/L Potassium 3.5 # 3.3-5.1 mmol/L CL 106 96-108 mmol/L CO2 26 22-29 mmol/L Gap 15 12-20 BUN 14 9-16 mg/dL Creat 0.82 0.5-1.4 mg/dL eGFR > 60 Chronic Kidney Disease: Estimated GFR < 60 mL/min/1.73m2 Severe Kidney Disease: Estimated GFR < 15 mL/min/1.73m2 FBS 79 60-99 mg/dL CA 9.0 8.4-10.2 mg/dL AST (GOT) 31 5-37 U/L ALT (GPT) 24 0-40 U/L Triglyceride 99 <150 mg/dL Desirable Triglyceride: less than 150 mg/dL Borderline High Triglyceride 150-199 mg/dL High Triglyceride: 200-499 mg/dL Very High Triglyceride: greater than or equal to 5OO mg/dL Cholesterol 160 <200 mg/dL Desirable Cholesterol: less than 200 mg/dL Borderline High Cholesterol: 200-239 mg/dL High Cholesterol: greater than 239 mg/dL LDL Calculated 85 <100 mg/dL Desirable LDL: less than 100 mg/dL Near Optimal/Above Optimal LDL: 110-129 mg/dL Borderline High LDL: 130-159 mg/dL High LDL: 160-189 mg/dL Very High LDL: greater than or equal to 190 mg/dL HDL 56 >40 mg/dL Desirable HDL: greater than 40 mg/dL Note: This HDL assay may give artificially low results in patients with liver disease. Vitamin D 25-OH 55.4 >30 ng/mL Health Based Reference Values* < 20 ng/mL Deficient 20-30 ng/mL Insufficient > 30 ng/mL Sufficient Coding Level of Care Code Est Pt Level 4 (97495) Complex EM visit Add On G2211 Diagnoses Dyslipidemia E78.5 Pain and swelling of toe of left foot M79.675; M79.89 History of vitamin D deficiency Z86.39 Ventricular arrhythmia I49.9 Assessment & Plan Assessment & Plan (1) Dyslipidemia: Code(s): E78.5 - Hyperlipidemia, unspecified Category: Medical Plan: Latest fasting labs are within normal limits, continue with atorvastatin 20 mg daily and reinforced importance of following a low-cholesterol diet and getting regular exercise (2) Pain and swelling of toe of left foot: Code(s): M79.675 - Pain in left toe(s); M79.89 - Other specified soft tissue disorders Plan: Ordered x-ray of toes on left foot. Patient states that it does not hurt as much anymore, does not take anything for it at present time (3) History of vitamin D deficiency: Code(s): Z86.39 - Personal history of other endocrine, nutritional and metabolic disease Category: Medical Plan: Latest labs showed vitamin-D levels are now within normal limits, continued on cholecalciferol 25 mcg daily (4) Ventricular arrhythmia: Code(s): I49.9 - Cardiac arrhythmia, unspecified Category: Medical Plan: Followed by cardiology currently on mexiletine 150 mg 1 tablet twice a day and metoprolol succinate ER 12.5 mg once a day Orders: Orders XR toe LT min 2V Today M79.675 - Pain in left toe(s), M79.89 - Other specified soft tissue disorders
--- OUTSIDE RECORDS SUMMARY | 2024-10-07 12:15 | XMS_ITS ---
Author Organization [facility] Address [address] [place] [address] Care Team Providers Care Hydrogeologist Name Role Phone Alon DAWSON, Tram Heart Primary Care Provider Un available Nata Hobson Unavailable [phone] Encounters Encounter Location Date Provider Diagnosis [facility] [address] [place] [address] 07/06/2024 Nata Hobson Plan Of Treatment No Information Progress Notes * Rony NINO CDOB:1970 (54 yo M)Acc No.[id number]:07/06/2024 Progress Note Patient:?NINORony Provider:?Nata Hobson DPM :1970???Age:53 Y???Sex:Male Son e:07/06/2024 Address:[address] [place] [phone] Pcp:Charleen Luciano Subjective: * Chief Complaints: * ??? * Medical History:? Objective: * Vitals:? Assessment: Plan: * Treatment: * Images: * The named appointment provid er may or may not be the originator of this progress note, and it is not deemed complete until electronically signed by the appointment provider. Sign off status: Pending * Provider:?Nata Hobson DPM Date:?03/2025 Generated for Sean fitzgerald/Mindy/eTransmitting on:?10/07/2024 12:15 PM EDT
--- OUTSIDE RECORDS SUMMARY | 2024-10-07 12:15 | XMS_ITS | Patient Health Record ---
Author [facility] Address [address] [place] [address] Care Team Providers Care Sports Statistician Name Role Phone Alon DAWSON, Tram Heart Primary Care Provider Un available Nata Hobson Unavailable [phone] Allergies Allergen (clinical drug ingredient) Drug/Non Drug [...] a day for 30 day(s) Active Psyllium [id number] Active Proctosol HC 2.5 % 1 application [...] 04/09/2024 Encounters Encounter Location Date Provider Diagnosis [address] [address] 10/21/2023 Nata Perica Pain in right toe(s) M79.674 ; Tinea unguium B35.1 and Pain in left toe(s) M79.[address] [address] 01/13/2024 Nata Perica Pain in right toe(s) M79.674 ; Tinea unguium B35.1 and Pain in left toe(s) M79.[address] [address] 04/09/2024 Nata Perica Pain in right toe(s) M79.674 ; Tinea unguium B35.1 ; Pain in left toe(s) M79.675 and Xerosis of skin L85.[address] [address] 03/11/2024 Nata Perica [address] [address] 06/30/2024 Nata Perica Assessments Encounter Date Diagnosis [...] Medicare [employer] [address] [place] [address] [id number] Rony Guidry Self - patient is the insured Medical (General) History Medical History History ICD Code Cancer lymphoma Epilepsy Warts Foot problems Surgical History Surgery Date(Month/Year) medical port put in bypass surgery for cancer - renal glands colonoscopy sinus surgery biopsys - adrenal glands spinal tap - 1 possibly 2
--- OUTSIDE RECORDS SUMMARY | 2024-10-07 12:15 | XMS_ITS ---
Author Organization [facility] [place] Address [address] [place] [address] Care Team Providers Care Glass Crusher Name Role Phone Alon DAWOSN, Tram Heart Primary Care Provider Un available BerkleyEsteban mukherjeeen Unavailable [phone] Allergies Allergen (clinical drug ingredient) Drug/Non Drug [...] needed Orally every 6 hrs Active Psyllium [id number] Active Proctosol HC 2.5 % 1 application [...] 04/09/2024 Encounters Encounter Location Date Provider [facility] [address] [place] [address] 04/09/2024 Nata Hobson Pain in right toe(s) [...] as necessary. Patient chooses, no pharmaceutical tx (05816) Progress Notes * Rony NINO CDOB:1970 (53 yo M)Acc No.[id number]:04/09/2024 Progress Note Patient:?Rony NINO Provider:?Nata Hobson DPM :1970???Age:53 Y???Sex:Male Son e:04/09/2024 Address:[address] [place] [phone] Pcp:Charleen Luciano Subjective: * Chief Complaints: * [...] week. ?Marital status: single. ?Occupation: Works Full-time- [employer]. * Medications:?TakingProctosol HC 2.5 % Cream 1 application Externally Twice a day Psyllium , Notes to Pharmacist: [id number] Maleate 4 MG Tablet 1 tablet as [...] day Taking Psyllium , Notes to Pharmacist: [id number] Chlorpheniramine Maleate 4 MG Tablet 1 tablet [...] as necessary. Patient chooses, no pharmaceutical tx (39046).? * Procedure Codes:?58664 LI WILDER, 1-5, Modifiers: XS * Preventive [...] Hobson DPM Date:? Generated for Sean fitzgerald/Mindy/Dudley on:?10/07/2024 12:15 PM EDT History and Physical Notes * HPI [...]
--- OUTSIDE RECORDS SUMMARY | 2024-10-07 12:16 | XMS_ITS ---
Author Organization [facility] Address [address] [place] [address] Care Team Providers Care Global Coordinator Name Role Phone Alon DAWSON, Tram Heart Primary Care Provider Un available Nata Hobson Unavailable [phone] REASON FOR VISIT cx 07/06 Encounters Encounter Location Date Provider Diagnosis [facility] [address] [place] [address] 06/30/2024 Nata Hobson Plan Of Treatment No Information Progress Notes * Rony NINO CDOB:1970 (53 yo M)Acc No.[id number]:06/30/2024 Patient:?Rony NINO :1970???Age:53 Y???Sex:Male Address:[address] [place] [address], [address] * true * Date:? Generated for Printi ng/Fagenog/eTransmitting on:?10/07/2024 12:15 PM EDT
== END 2024-10-07 12:01 | disposition home or self-care (01) ==
LOC: HO.HMCC 11:04
PROVIDERS: PCP Internal Medicine; Visit Provider Internal Medicine
DX: E78.5 Hyperlipidemia, unspecified (principal); M79.675 Pain in left toe(s); M79.89 Other specified soft tissue disorders; Z86.39 Personal history of other endocrine, nutritional and metabolic disease; I49.9 Cardiac arrhythmia, unspecified

== ENCOUNTER 2024-10-07 11:03 | Outpatient (REF) | payer MEDICAID, SELFPAY ==
--- NOTE | ~2024-10-07 | XR_ITS ---
EXAMINATION: XR TOES, LEFT CLINICAL INFORMATION: M79.675 - Pain in left toe(s) COMPARISON: None available. TECHNIQUE: 3 views of the left toes were obtained. FINDINGS: There are no fractures or dislocations. No joint effusion is identified. No bone, joint or soft tissue abnormality is demonstrated. XR/XR toe LT min 2V IMPRESSION: Unremarkable examination. Electronically signed by: Bahman Wang MD 10/07/2024 12:33 PM EDT
== END 2024-10-07 11:04 | disposition home or self-care (01) ==
LOC: HO.HMGCX 11:03
PROVIDERS: PCP Internal Medicine; Visit Provider Internal Medicine
DX: E78.5 Hyperlipidemia, unspecified (principal); M79.675 Pain in left toe(s); M79.89 Other specified soft tissue disorders; I49.9 Cardiac arrhythmia, unspecified; Z86.39 Personal history of other endocrine, nutritional and metabolic disease; Z79.899 Other long term (current) drug therapy
CPT/HCPCS: 73660; 99212

== ENCOUNTER → 2024-10-07 12:05 | Outpatient (BNV) | payer MEDICAID, SELFPAY | PROVIDERS: PCP Internal Medicine; Visit Provider Radiology Diagnostic Radiology | DX: M79.675 Pain in left toe(s) (principal) | CPT/HCPCS: 73660 ==